=== PATIENT | female | born 1930 | race Caucasian/White ===

== ENCOUNTER → 2017-03-07 | Outpatient (CLI) | payer OTHER, BC | LOC: BMCIMAGING 10:32 | PROVIDERS: ATTEND Podiatrist Foot & Ankle Surgery | DX: M20.11 Hallux valgus (acquired), right foot (principal); M85.871 Other specified disorders of bone density and structure, right ankle and foot; M85.89 Other specified disorders of bone density and structure, multiple sites ==

== ENCOUNTER → 2017-06-21 | Day surgery (SDC) | payer OTHER, BC ==
[~2017-06-21] MED LIST: BUPIVACAINE 0.5% 30 ML SDV ONE; DEXAMETHASONE 4 MG/ML VIAL ONE; HYDROCODONE/APAP 5/325 TAB PO PRN; HYDROmorphONE/DILAUDID 1 MG/ML SYR IVP PRN; LIDOCAINE 1% 2 ML INJ ID PRN; LIDOCAINE 1% 2 ML INJ ONE; LIDOCAINE 2% 5 ML SDV ONE; LR 1,000 ML IV ONE; LR 1,000 ML IV SCH; LR 500 ML IV PRN; MIDAZOLAM 2 MG/2 ML VIAL IVP ONE; MIDAZOLAM 2 MG/2 ML VIAL ONE; NALOXONE HCL 0.4 MG/ML INJ IVP PRN; ONDANSETRON 4 MG/2 ML VIAL IVP PRN; ONDANSETRON 4 MG/2 ML VIAL ONE; PROPOFOL/EMULSION 500 MG/50 ML BOTTLE IV ONE; ceFAZolin 1 GM/5 ML SYR ONE; ceFAZolin 2 GM/DEXTROSE 100 ML IV ONE; fentaNYL 100 MCG/2 ML INJ IVP PRN; fentaNYL 100 MCG/2 ML INJ ONE
--- NOTE | 2017-06-21 10:08 | PDANEPAE ---
ANE History of Present Illness foot ANE Past Medical History - Cardiovascular History Hx Hypertension: Yes Hx Arrhythmias: Yes Hx Chest Pain: No Hx Coronary Artery / Peripheral Vascular Disease: Yes Hx CHF / Valvular Disease: No Hx Palpitations: No Cardiovascular History Comment: Pacemaker. Mitral Valve repair. SSS - Pulmonary History Hx COPD: No Hx Asthma/Reactive Airway Disease: No Hx Recent Upper Respiratory Infection: Yes Hx Oxygen in Use at Home: Yes O2 in Use at Home (L/minute): 2 Hx Sleep Apnea: No Sleep Apnea Screening Result - Last Documented: Negative Pulmonary History Comment: O2 at night - Neurologic History Hx Cerebrovascular Accident: No Hx Seizures: No Hx Dementia: No - Endocrine History Hx Diabetes: No - Renal History Hx Renal Disorders: No - Liver History Hx Hepatic Disorders: No - Neurological & Psychiatric Hx Hx Neurological and Psychiatric Disorders: No - Cancer History Hx Cancer: No - Congenital Disorder History Hx Congenital Disorders: No - GI History Hx Gastrointestinal Disorders: No - Chronic Pain History Chronic Pain: No - Surgical History Prior Surgeries: Tonsillectomy. Pacemaker x2 ANE Review of Systems - Exercise capacity METS (RN): 3 METS - Pacemaker Pacemaker Type: Permanent Pacer/Defib Pacemaker Fryline Attendant: Biotronik Pacemaker Model: Yariel MILES ANE Patient History - Allergies Allergies/Adverse Reactions: No Known Allergies Allergy (Unverified 07/23/12 23:49) - Home Medications Home Medications: Aspirin [Aspirin 81mg (OTC)] 81 mg PO DAILY 07/24/12 [Last Taken 01/15/13 08:00] Multivitamins [Multivitamin (OTC)] 1 each PO DAILY 07/24/12 [Last Taken 08:00] Primidone [Primidone 250mg (RX)] 250 mg PO DAILY@12 07/24/12 [Last Taken 12:00] Primidone [Primidone 250mg (RX)] 500 mg PO DAILY 07/24/12 [Last Taken 01/15/13 08:00] Triamterene/Hctz 37.5/25 [Dyazide 37.5/25 (RX)] 1 each PO DAILY 07/24/12 [Last Taken 01/15/13 08:00] Glucosa Wilson 2Kcl/Chondroitin Wilson [Glucosamine & Chondroitin Cap] 1 each PO BIDMEAL 01/15/13 [Last Taken 01/15/13 08:00] LORazepam [Ativan 0.5 mg (RX)] 0.5 mg PO BID 01/15/13 [Last Taken 01/15/13 08:00 ] Pharmacist Completed 01-15-13 01/15/13 [Last Taken Unknown] - NPO status NPO Since - Liquids (Date): 06/20/17 NPO Since - Liquids (Time): 19:00 NPO Since - Solids (Date): 06/20/17 NPO Since - Solids (Time): 19:00 - Anes Hx Anes Hx: no prior problems - Smoking Hx Smoking Status: Never smoked - Family Anes Hx Family Hx Anesthesia Complications: none ANE Labs/Vital Signs - Vital Signs Blood Pressure: 146/74 Heart Rate: 84 Respiratory Rate: 18 O2 Sat (%): 95 Height: 165.1 cm Weight: 59.874 kg ANE Physical Exam - Airway Mallampati Score: Class 2 Mouth exam: normal dental/mouth exam - Pulmonary Pulmonary: no respiratory distress - Cardiovascular Cardiovascular: regular rate and rhythym - ASA Status ASA Status: II
--- NOTE | 2017-06-21 10:12 | PDGENHP ---
History and Physical - Chief Complaint Right foot bunion - History of Present Illness 87 year old female with painful bunion deformity which has failed conservative treatments. She continues to develop a wound over the medial 1st metatarsal head. Scheduled for surgery. Cleared by cardiology. History Information - Allergies/Home Medication List Allergies/Adverse Reactions: No Known Allergies Allergy (Unverified 07/23/12 23:49) Home Medications: Aspirin [Aspirin 81mg (OTC)] 81 mg PO DAILY 07/24/12 [Last Taken 01/15/13 08:00] Multivitamins [Multivitamin (OTC)] 1 each PO DAILY 07/24/12 [Last Taken 08:00] Primidone [Primidone 250mg (RX)] 250 mg PO DAILY@12 07/24/12 [Last Taken 12:00] Primidone [Primidone 250mg (RX)] 500 mg PO DAILY 07/24/12 [Last Taken 01/15/13 08:00] Triamterene/Hctz 37.5/25 [Dyazide 37.5/25 (RX)] 1 each PO DAILY 07/24/12 [Last Taken 01/15/13 08:00] Glucosa Wilson 2Kcl/Chondroitin Wilson [Glucosamine & Chondroitin Cap] 1 each PO BIDMEAL 01/15/13 [Last Taken 01/15/13 08:00] LORazepam [Ativan 0.5 mg (RX)] 0.5 mg PO BID 01/15/13 [Last Taken 01/15/13 08:00 ] Pharmacist Completed 01-15-13 01/15/13 [Last Taken Unknown] I have personally reviewed and updated: medical history - Past Medical History atrial fibrillation, hypertension (pacemaker) - Social History Smoking Status: Never smoked Review of Systems Constitutional: Reports: no symptoms EENMT: Reports: no symptoms Cardiac: Reports: no symptoms, irregular heart rate Respiratory: Reports: no symptoms Gastrointestinal: Reports: no symptoms Muscolosketal: Reports: other (right foot bunion) Skin: Reports: no symptoms Neurological: Reports: no symptoms Physical Exam Temp Pulse Resp BP Pulse Ox 36.6 C 84 18 146/74 H 95 06/21/17 09:41 06/21/17 10:08 06/21/17 10:08 06/21/17 10:08 07/28/17 10:08 Constitutional: no apparent distress Cardiovascular: regular rate and rhythym Peripheral Pulses: 2+: dorsalis-pedis (R) Respiratory: no respiratory distress Skin: warm, normal color Musculoskeletal: full muscle strength, other (Right foot bunion and hammertoes) Neurologic: sensation intact bilaterally Assessment & Plan Assessment: Right foot bunion and hammertoes Plan: She is scheduled for a right foot Judge bunionectomy and flexor tenotomies to the toes. She will keep the dressing clean, dry, and intact. She will ice and elevate her foot. She will remain in the walking boot with use of the walker for assistance. Follow up in one week.
--- NOTE | 2017-06-21 12:05 | POSTOPPROG ---
Post Op Note Date of Operation: 06/21/17 Surgeon: Mirta Owens Instrument Repairer Helper: None Anesthesiologist: Dr. Stock Anesthesia: IV Sedation Pre-op Diagnosis: Right foot bunion and hammertoes Post-op Diagnosis: Right foot bunion and hammertoes Indication: Chronic wound medial eminence of bunion. Patient unable to wear shoes. Procedure: Right foot Judge bunionectomy, flexor tenotomies of toes 2-5. Findings: Soft bone consistent with osteoporosis. Inf/Abcess present in the surg proc area at time of surgery?: No Depth: Deep Incisional (Fascial) EBL: Pneumatic ankle tourniquet @225 mm Hg 58 minutes Total fluids administered: 15 cc 0.5% Marcaine plain and 5 cc 2% Lidocaine plain. Complications: None
[2017-06-21 12:22] VITALS: PULSE 84; RESP 16
[2017-06-21 12:57] VITALS: TEMP 97.5
[2017-06-21 14:11] VITALS: BP 140/76; O2SAT 94
--- NOTE | 2017-06-21 15:29 | GOP ---
[f rep st] OPERATIVE REPORT DATE OF OPERATION: 06/21/2017 SURGEON: Mirta Owens DPM ANESTHESIA: Local with monitored anesthesia care. ANESTHESIOLOGIST: Dr. Stock. PREOPERATIVE DIAGNOSIS: Right foot bunion and hammertoes, 2 through 5. POSTOPERATIVE DIAGNOSIS: Right foot bunion and hammertoes, 2 through 5. PROCEDURE PERFORMED: 1. Right foot Judge bunionectomy. 2. Right foot flexor tenotomies, toes 2 through 5. FINDINGS: ESTIMATED BLOOD LOSS: Minimal. DESCRIPTION OF PROCEDURE: Under mild sedation, the patient was brought into the operating room, harmony obdulio on the operating table in supine position. Following IV sedation, local anesthesia was obtained about the right foot using 15 cc of 0.5% Marcaine plain and 5 cc of 2% lidocaine plain. The foot w as then scrubbed, prepped, and draped in the usual aseptic manner. A sterile pneumatic ankle tourni quet was placed about her right ankle. The foot was exsanguinated and tourniquet inflated to 225 mm Hg. Attention was then directed to the 1st metatarsophalangeal joint, where an incision was made me dial and parallel to the tendon of the extensor hallucis longus. The incision was deepened through subcutaneous tissue, with care taken to identify and retract all vital neural and vascular structure s. All bleeders were cauterized as necessary. An inverted L-type capsulotomy was then performed ov er the 1st metatarsophalangeal joint. The periosteum and capsule were reflected medially and latera lly to expose the 1st metatarsal head as the operative site. The medial eminence was resected utili zing an oscillating bone saw. The bone was found to be extremely soft and cystic in the 1st metatar ramos head. The incision was then lengthened over the base of the proximal phalanx. Approximately 1 cm of the base of the proximal phalanx was removed for the Judge bunionectomy. This was done using the oscillating bone saw, and sharp dissection used to remove the base of the proximal phalanx. Th e lateral contracture on the hallux was noted to be reduced. The wound was irrigated with copious s terile saline-Ancef irrigation. All rough edges were smoothed with a rongeur, as the bur was too ag gressive for the soft bone. The wound was again irrigated. The redundant medial capsule was resect ed as necessary. Periosteum and capsule were repaired with 2-0 and 3-0 Vicryl. The subcuticular la wilbur was repaired with 4-0 Monocryl, and the skin with 4-0 Prolene in horizontal suture technique. Attention was then directed to all of the toes, where a flexor tenotomy was then performed percutane ously using a 15 blade. This was done to the toes 2, 3, 4, and 5. The incisions were irrigated and closed with 4-0 Prolene. Mastisol, Steri-Strips, Xeroform, 4 x 4 gauze, Fabricio, Chevy wrap were appli ed. Tourniquet was deflated at 58 minutes. A prompt hyperemic response was noted to all digits of the right foot. The patient was then transferred to the recovery room with vital signs stable and vascular status in tact. Following a period of postoperative monitoring, the patient will be discharged home. Advised to ice and elevate her foot. She is advised to keep the dressing clean, dry, and intact. She will follow up with me in the next week for wound check and dressing change. HEMOSTASIS: Pneumatic ankle tourniquet at 225 mmHg for 58 minutes. INJECTABLES: 15 cc of 0.5% Marcaine plain and 5 cc of 2% lidocaine plain. /[id number]/MODL
== END | disposition home or self-care (01) ==
LOC: F3N 08:33 → FSGY 08:33 → UNDOADMOB 08:33 → EDSTATUS 10:00 → UNDODISOB 13:50
PROVIDERS: ATTEND Podiatrist Foot & Ankle Surgery
PROC: 0LNV0ZZ Release Right Foot Tendon, Open Approach (ICD-10-PCS; principal; 2017-06-21 10:00)
PROC: 0SSM0ZZ Reposition Right Metatarsal-Phalangeal Joint, Open Approach (ICD-10-PCS; 2017-06-21 10:00)
DX: M20.11 Hallux valgus (acquired), right foot (principal); M20.41 Other hammer toe(s) (acquired), right foot; L89.899 Pressure ulcer of other site, unspecified stage; M85.88 Other specified disorders of bone density and structure, other site; I48.91 Unspecified atrial fibrillation; I10 Essential (primary) hypertension; Z95.0 Presence of cardiac pacemaker
CPT/HCPCS: J0690; J1100; J2250; J2405; J2704; J3010

== ENCOUNTER → 2017-07-10 | Outpatient (CLI) | payer OTHER, BC | LOC: BMCIMAGING 13:46 | PROVIDERS: ATTEND Podiatrist Foot & Ankle Surgery | DX: R22.41 Localized swelling, mass and lump, right lower limb (principal) ==

== ENCOUNTER → 2017-07-23 | Outpatient (CLI) | payer OTHER, BC | LOC: BMCIMAGING 14:15 | PROVIDERS: ATTEND Podiatrist Foot & Ankle Surgery | DX: Z47.89 Encounter for other orthopedic aftercare (principal) ==

== ENCOUNTER 2017-08-20 02:36 | Inpatient (IN) | payer OTHER, BC ==
[2017-08-20] MEDS ORDERED: ONDANSETRON 4 MG/2 ML VIAL ONE (02:52)
[2017-08-20] MEDS ORDERED: NS 1,000 ML IV ONE ×2 (02:54→04:55)
[2017-08-20] MEDS ORDERED: ONDANSETRON 4 MG/2 ML VIAL IVP ONE (02:54)
--- NOTE | 2017-08-20 03:16 | EDPHY ---
H & P Stated Complaint: no bm x 5 days vomiting Time Seen by Provider: 08/20/17 03:03 HPI/ROS: Chief Complaint: Constipation, vomiting HPI: 87-year-old woman presenting from assisted living stating that she has not had a bowel movement for 6 days. She states she believes she has vomiting fecal material. Does not have a history of similar symptoms in the past. She denies any abdominal pain. No abdominal surgeries in the past. No urinary symptoms. No fevers or chills. No chest pain or shortness of breath. ROS: 10 point Review of Systems is negative except as noted in the HPI. PMH: Coronary artery disease, tremor, hypertension, pacemaker placement Social History: No smoking, no alcohol, no recreational drug use Family History: non-contributory Physical Exam: Gen: Awake, Alert, No Distress HEENT: Nose: no rhinorrhea Eyes: PERRLA, EOMI Mouth: Moist mucosa Neck: Supple, no JVD Chest: nontender, lungs clear to auscultation Heart: S1, S2 normal, no murmur Abd: Soft, hypoactive bowel sounds, moderately distended, moderate lower abdominal tenderness palpation Back: no CVA tenderness, no midline tenderness Ext: no edema, non-tender Skin: no rash Neuro: CN II-XII intact, Sensation grossly intact, Strength 5/5 in bilateral upper and lower extremities - Personal History Current Tetanus/Diphtheria Vaccine: Yes Current Tetanus Diphtheria and Acellular Pertussis (TDAP): Yes - Medical/Surgical History Hx Asthma: No Hx Chronic Respiratory Disease: No Hx Diabetes: No Hx Cardiac Disease: No Hx Renal Disease: No Hx Cirrhosis: No Hx Alcoholism: No Hx HIV/AIDS: No Hx Splenectomy or Spleen Trauma: No - Social History Smoking Status: Never smoked Constitutional: Initial Vital Signs Temperature (C) 36.4 C 08/20/17 02:45 Heart Rate 105 H 08/20/17 02:45 Respiratory Rate 18 08/20/17 02:45 Blood Pressure 139/83 H 08/20/17 02:45 O2 Sat (%) 84 L 08/20/17 02:45 O2 Delivery Mode Room Air O2 (L/minute) 3 Allergies/Adverse Reactions: No Known Allergies Allergy (Unverified 07/23/12 23:49) Home Medications: Medication Instructions Recorded Primidone [Primidone 250mg (RX)] 250 mg PO TID 07/24/12 Acetaminophen [Tylenol 325mg (*)] 650 mg Q6HRS PRN 06/21/17 Apixaban [Eliquis] 2.5 mg BID 06/21/17 Aspercreme PRN 06/21/17 Colace 100 MG (*) 100 mg BID PRN 06/21/17 Detrol LA 2MG (*) 2 mg BID 06/21/17 Digoxin [Digitek] 125 mcg DAILY 06/21/17 Diltiazem HCl [Diltiazem ER] 120 mg DAILY 06/21/17 Furosemide [Lasix 20 MG (*)] 20 mg BID 06/21/17 Hydrocortisone 1% cream (*) BID 06/21/17 Metoprolol Tartrate 100 mg BID 06/21/17 Mucinex Fast-Max Cold-Flu Liq PRN 06/21/17 Omeprazole 20 mg DAILY 06/21/17 Potassium Chloride DAILY 06/21/17 Potassium Chloride [Klor-Con 10] BID 06/21/17 Primidone [Primidone 250mg (*)] TID 06/21/17 Spironolactone [Aldactone 25 MG 12.5 mg DAILY 06/21/17 (*)] Donepezil HCl 08/20/17 Myrbetriq 08/20/17 Omeprazole 08/20/17 oxyCODONE HCL [Oxycodone HCl] 5 mg PO 08/20/17 Medical Decision Making - Diagnostics Imaging Results: CT scan of the abdomen pelvis shows a high-grade partial distal small-bowel obstruction low with central pelvis with narrowing. There is fecalization within the ileum pre in the rectosigmoid region is decompressed. There is some fluid distension stomach and some diffuse wall thickening with concurrent gastroenteritis. There is no free air. Interpreted by Dr. Naqvi. Imaging: Discussed imaging studies w/ manager call center Radiologist ED Course/Re-evaluation: 87-year-old woman with a high-grade distal partial small-bowel obstruction. Does not have a history of surgeries. She has only vomited a couple times. She is not in any significant distress at this time. I have discussed with Dr. barney joshi ED, hospitalist. She will admit to the service for further care. Patient will be admitted for medical management. No NG at this time. - Data Points Laboratory Results: Laboratory Results 08/20/17 02:45 08/20/17 02:45 08/20/17 08/20/17 08/20/17 04:30 02:45 02:45 WBC 12.45 10^3/uL H 10^3/uL (3.80-9.50) RBC 4.09 10^6/uL L 10^6/uL (4.18-5.33) Hgb 14.0 g/dL g/dL (12.6-16.3) Hct 41.1 % % (38.0-47.0) MCV 100.5 fL H fL (81.5-99.8) MCH 34.2 pg H pg (27.9-34.1) MCHC 34.1 g/dL g/dL (32.4-36.7) RDW 13.2 % % (11.5-15.2) Plt Count 170 10^3/uL 10^3/uL (150-400) MPV 12.3 fL H fL (8.7-11.7) Neut % (Auto) 89.6 % H % (39.3-74.2) Lymph % (Auto) 5.7 % L % (15.0-45.0) [place] % (Auto) 4.1 % L % (4.5-13.0) Eos % (Auto) 0.0 % L % (0.6-7.6) Baso % (Auto) 0.2 % L % (0.3-1.7) Nucleat RBC Rel Count 0.0 % % (0.0-0.2) Absolute Neuts (auto) 11.16 10^3/uL H 10^3/uL (1.70-6.50) Absolute Lymphs (auto) 0.71 10^3/uL L 10^3/uL (1.00-3.00) Absolute Monos (auto) 0.51 10^3/uL 10^3/uL (0.30-0.80) Absolute Eos (auto) 0.00 10^3/uL L 10^3/uL (0.03-0.40) Absolute Basos (auto) 0.02 10^3/uL 10^3/uL (0.02-0.10) Absolute Nucleated RBC 0.00 10^3/uL 10^3/uL (0-0.01) Immature Gran % 0.4 % % (0.0-1.1) Immature Gran # 0.05 10^3/uL 10^3/uL (0.00-0.10) Sodium 137 mEq/L mEq/L (134-144) Potassium 4.3 mEq/L mEq/L (3.5-5.2) Chloride 94 mEq/L L mEq/L (97-110) Carbon Dioxide 28 mEq/l mEq/l (22-31) Anion Gap 15 mEq/L mEq/L (8-16) BUN 21 mg/dL mg/dL (7-23) Creatinine 1.1 mg/dL H mg/dL (0.6-1.0) Estimated GFR 47 Glucose 165 mg/dL H mg/dL (70-100) Calcium 10.2 mg/dL mg/dL (8.5-10.4) Urine Color YELLOW Urine Appearance CLEAR Urine pH 5.0 (5.0-7.5) Ur Specific [place] > 1.035 H (1.002-1.030) Urine Protein NEGATIVE (NEGATIVE) Urine Ketones TRACE H (NEGATIVE) Urine Blood NEGATIVE (NEGATIVE) Urine Nitrate NEGATIVE (NEGATIVE) Urine Bilirubin NEGATIVE (NEGATIVE) Urine Urobilinogen NEGATIVE EU EU (0.2-1.0) Ur Leukocyte Esterase 2+ H (NEGATIVE) Urine RBC 1-3 /hpf /hpf (0-3) Urine WBC 1-3 /hpf /hpf (0-3) Ur Epithelial Cells TRACE /lpf /lpf (NONE-1+) Urine Bacteria TRACE /hpf H /hpf (NONE SEEN) Urine Mucus TRACE /lpf /lpf (NONE-1+) Urine Glucose NEGATIVE (NEGATIVE) Medications Given: Discontinued Medications Sodium Chloride (Ns) 1,000 mls @ 0 mls/hr IV ONCE ONE PRN Reason: Wide Open Stop: 08/20/17 02:55 Last Admin: 08/20/17 02:56 Dose: 1,000 mls Ondansetron HCl (Zofran) 4 mg IVP EDNOW ONE Stop: 08/20/17 02:55 Last Admin: 08/20/17 02:56 Dose: 4 mg Departure - Departure
[2017-08-20] MEDS ORDERED: IOPAMIDOL (ISOVUE-300) 100 ML BTL ONE (03:20)
[2017-08-20 03:21] LABS: % IMMATURE GRANULYOCYTES 0.4 % (0.0-1.1); ABSOLUTE IMMATURE GRANULOCYTES 0.05 10^3/uL (0.00-0.10); ADD DIFF? NO; ADD MORPH? NO; ADD SCAN? NO; ATYPICAL LYMPHOCYTE FLAG 0 (0-99); FRAGMENT RBC FLAG 0 (0-99); HEMATOCRIT 41.1 % (38.0-47.0); LEFT SHIFT FLG 0 (0-99); LIPEMIA HEMOLYSIS FLAG 90 (0-99); MEAN CELL HEMOGLOBIN 34.2 pg (27.9-34.1); MEAN CELL HEMOGLOBIN CONCENTR. 34.1 g/dL (32.4-36.7); MEAN CELL VOLUME 100.5 fL (81.5-99.8); MEAN PLATELET VOLUME 12.3 fL (8.7-11.7); PLATELET CLUMPS FLAG 0 (0-99); PLATELET COUNT 170 10^3/uL (150-400); RED BLOOD CELL COUNT 4.09 10^6/uL (4.18-5.33); RED CELL DISTRIBUTION WIDTH 13.2 % (11.5-15.2)
[2017-08-20 03:28] LABS: ANION GAP 15 mEq/L (8-16); CALCIUM 10.2 mg/dL (8.5-10.4); CARBON DIOXIDE 28 mEq/l (22-31); CHLORIDE 94 mEq/L (97-110); CREATININE 1.1 mg/dL (0.6-1.0); GLOMERULAR FILTRATION RATE 47; GLUCOSE 165 mg/dL (70-100); POTASSIUM 4.3 mEq/L (3.5-5.2); SODIUM 137 mEq/L (134-144)
[2017-08-20 04:39] LABS: COLOR YELLOW; LEUKOCYTE ESTERASE,URINE 2+ (NEGATIVE); NITRITE,URINE NEGATIVE (NEGATIVE)
[2017-08-20 04:51] LABS: BACTERIA TRACE /hpf (NONE SEEN); MUCUS TRACE /lpf (NONE-1+)
[2017-08-20] MEDS ORDERED: ACETAMINOPHEN 325 MG TAB PO PRN (04:55)
[2017-08-20] MEDS ORDERED: HYDROmorphONE/DILAUDID 1 MG/ML INJ IVP PRN (04:55)
[2017-08-20] MEDS ORDERED: ONDANSETRON DISINTEGRATING 4 MG TAB PO PRN (04:55)
[2017-08-20] MEDS ORDERED: ONDANSETRON 4 MG/2 ML VIAL IVP PRN (04:55)
--- NOTE | 2017-08-20 05:37 | GHP ---
[f rep st] HISTORY AND PHYSICAL DATE OF ADMISSION: 08/20/2017 CHIEF COMPLAINT: Abdominal pain, nausea, and vomiting. HISTORY OF PRESENT ILLNESS: An 87-year-old female with cardiac history including valve replacement, atrial fibrillation with a pacemaker, who presents with complaints of 5 days of progressing abdominal discomfort, nausea and vomiting that she describes as postprandial. The patient reports that early this morning she believes she was passing vomit that consisted of stool. The patient reports she has had little to no bowel movements in the past 5 days, as well, which is atypical for her. Normally, she can pass normal stool nearly daily. The patient denies any blood in her vomitus. Does endorse a bdominal discomfort. Reports that she has been vomiting up 2 of her 3 meals a day, but keeping most liquids down without complication. She denies any chest pain, shortness of breath, palpitations, hea dache, vision changes. She denies subjective fevers or chills. Denies any myalgias, arthralgias, or preceding nausea, vomiting, and abdominal pain. PAST MEDICAL HISTORY: 1. Valve replacement. 2. Atrial fibrillation with pacemaker. 3. Hypertension. 4. Dementia. 5. Familial tremor. 6. Sick sinus syndrome with pacemaker. 7. History of a sinus arrest. SOCIAL HISTORY: Patient lives at [facility] in assisted living. Walks with a walker. Denies tobacco o r illicit drugs. Drinks alcohol occasionally. FAMILY HISTORY: Negative for atrial fibrillation. ADVANCED DIRECTIVES: The patient is do not resuscitate. Her [id number] would be her medical dec ision maker. REVIEW OF SYSTEMS: A 10-point review of systems is negative with the exception of that reported in t he HPI. PHYSICAL EXAMINATION: VITAL SIGNS: Blood pressure 139/83, heart rate 105, respiratory rate 18, 84% on room air, 36.4. GENERAL: This is a pleasant elderly female, lying flat in bed. HEENT: Notable for dry mucous membranes. Eye exam is negative for any icterus. CARDIAC: The patient is irregularl y irregular and tachycardic. PULMONARY: Clear to auscultation bilaterally. GASTROINTESTINAL: Dimi nished bowel sounds. Abdomen is soft, mildly tender to palpation in bilateral lower quadrants. No r ebound or guarding. MUSCULOSKELETAL: Negative for any lower extremity edema. SKIN: Negative for a ny rashes. NEUROLOGIC: She is alert and oriented x3. Clearly has some memory difficulties. PSYCHI ATRIC: She is pleasant and cooperative on interview and examination. DATA: CT of the abdomen, which I personally reviewed and interpreted, shows a high-grade small bowel obstruction with what Radiology identifies as a transition point. LABORATORY: White count 12.4, hematocrit 41.1, platelets of 170. Creatinine of 1.1. Sodium 137, po tassium of 4.3. ASSESSMENT AND PLAN: This is an 87-year-old female, presenting with abdominal pain nausea, vomiting. 1. Acute small bowel obstruction. The patient is not able to clearly convey a preceding gastroenter itis or clear intraabdominal surgical history. Images confirm high-grade small bowel obstruction. W ill make the patient n.p.o., initiate intravenous fluid hydration, intravenous pain medications, as w ell as intravenous antiemetics. Will consult Surgery this morning so they can follow along. The pat ient is not having active nausea and vomiting. Will wait. I am dropping in NG tube at this time unt nh Surgery has evaluated, and provide their recommendations. 2. Mitral valve replacement. Patient is on Eliquis. I am going to hold this medication for now, un til we discuss with Surgery. Believe the patient has a porcine valve so it is safe to keep unanticoa gulated if needed for surgical options. 3. Atrial fibrillation. Patient is in atrial fibrillation at this time. Intermittently being paced . Again, will hold her Eliquis until discussed further with Surgery. Can certainly bridge with Love nox. We will continue any rate control medications that she is on once reconciled. I have written f or an additional saline bolus and continuous fluids to reverse any underlying dehydration, driving ta chycardia. 4. Acute kidney injury. Suspect this is likely volume related. Will fluid resuscitate and recheck her renal function. 5. Prophylaxis as above, placing sequential compression devices. Will discuss longer-acting blood t hinners with Surgery. DIET: N.p.o. with IV fluids. DISPOSITION: I expect greater than 2 midnights, as the patient is presenting with a high-grade bowel obstruction at the age of 87, requiring initial medical management and surgical consultation. I hav e discussed the case with the emergency room physician. [facility] for care. /[id number]/MODL
--- NOTE | 2017-08-20 07:46 | SOAPPROG ---
SOAP Progress Note Assessment/Plan: Assessment: 87 female with feculent emesis and probable sbo/ no prior abd surgery Plan:obs 08/20/17 07:45 Objective: Vital Signs Temp Pulse Resp BP Pulse Ox 36.5 C 105 H 16 130/75 H 90 L 08/20/17 05:42 08/20/17 05:42 08/20/17 05:42 08/20/17 05:42 08/20/17 05:42 08/19/17 08/20/17 08/21/17 05:59 05:59 05:59 Intake Total 1000 Balance 1000 ICD10 Worksheet Patient Problems: Problems Problem Status Onset Muscle weakness Active
--- NOTE | 2017-08-20 08:53 | GCON ---
[f rep st] CONSULTATION GENERAL SURGERY CONSULTATION DATE OF CONSULTATION: 08/20/2017 CHIEF COMPLAINT: Abdominal pain, nausea, and vomiting. REASON FOR CONSULT: We have been asked to consult by the medicine service for diagnosis of small bow el obstruction. HISTORY OF PRESENT ILLNESS: The patient is an 87-year-old female who reportedly complains of 5 days of progressing postprandial abdominal pain, nausea, and vomiting without a bowel movement for about t he past 5 days. She reports a normal history of constipation. Please note, this report is almost en tirely from chart review as she is unable to give me history this morning. She currently thinks she might be [place] the theater. She does not recall having abdominal pain when I talked to her this morning . Since being in the hospital, she has had a CT scan of the abdomen and pelvis, which shows a likely hi gh-grade partial distal small bowel obstruction with a point of transition in the lower pelvis. Ther e is also some fluid and fecalization of the terminal ileum and ascending colon with some decompressi on of the more distal portions of the colon. Please see the report for full details. When I asked h er if she has had any prior abdominal surgical history, she says she thinks so. Upon exam, I cannot appreciate any abdominal scars. PAST MEDICAL HISTORY: Is again from chart review and includes valve replacement, atrial fibrillation with pacemaker, hypertension, dementia, familial tremor, sick sinus syndrome with pacemaker and hist ory of sinus arrest. PAST SURGICAL HISTORY: Patient thinks she may have abdominal surgery but is not a good historian. I do see a scar on her chest indicative of open heart surgery and she does have a history of valve rep lacement per chart review. There is a pacemaker in place. MEDICATIONS: At home include omeprazole, Myrbetriq, donepezil, spironolactone, primidone, potassium chloride, Mucinex, metoprolol, hydrocortisone cream, Lasix, diltiazem, digoxin, Detrol LA, Colace, As percreme, Eliquis, acetaminophen. All these to be confirmed by Pharmacy. ALLERGIES: No known drug allergies. SOCIAL HISTORY: The patient resides at a halfway. At [facility]. She uses a walk er. She denies tobacco or illicit drug use and she does drink alcohol on occasion. FAMILY HISTORY: Noncontributory. Not obtained. REVIEW OF SYSTEMS: Negative aside from that reported in the HPI. PHYSICAL EXAMINATION: VITAL SIGNS: Temperature 36.5, blood pressure 130/75, heart rate 105, oxygena tion 90% on room air. Respiratory rate 16. GENERAL: A pleasant 87-year-old female, sleeping comfor tably, who easily awakens. [place] is [place] the theater. Does recall being in the emergency departm ent. Has recollection of the reason why she came into the hospital. HEENT: Normocephalic, atraumat ic. Mucous membranes moist. Sclerae anicteric. CHEST: Clear to auscultation bilaterally. CARDIAC : Regular rate and rhythm. ABDOMEN: Softly distended without rebound or guarding upon deep palpati on. Hypoactive bowel sounds. GENITALIA: Deferred. EXTREMITIES: Warm and dry. IMPRESSION: This is an 87-year-old female with extensive cardiac history and dementia with a likely small bowel obstruction, etiology uncertain. Possible history of abdominal surgery. PLAN: I agree with current plan of bowel rest, gentle IV hydration and supportive care with antiemet ics and pain medicines as needed. She does not seem to need nasogastric compression right now as she appears comfortable. We will get an abdominal x-ray either later today or early tomorrow morning. I will continue to follow the patient with you. I also discussed this with Dr. Reese, who will see t he patient today. /[id number]/MODL
--- NOTE | 2017-08-20 09:45 | ASMTCMCOM ---
CM Note CM Note Notes: Chart reviewed, pt is a 87 y/o female admitted w/ abdominal pain, nausea and vomitting. Pt is a DNR and her brother in law is MDPOA. It is suspected that pt has a small bowel obstruction and surgery has been ordered to consult. No therapies ordered at this time. Anticipates that pt will d/c independent when medically stable. CM available for changes. Date Signed: 08/20/2017 09:44 AM Electronically Signed By:HEIDY Orellana
--- NOTE | 2017-08-20 10:31 | HOSPPROG ---
Hospitalist Progress Note Assessment/Plan: Patient is an 87-year-old female with a cardiac history who presented the emergency room with abdominal pain nausea and vomiting. She was admitted earlier today. I reviewed her care with Dr. Reese. * abdominal pain with associated nausea and vomiting concern for an acute small-bowel obstruction, CT shows a high grade small bowel obstruction Will get a small-bowel follow-through this morning to further evaluate As far as I know she has no abdominal surgeries * mitral valve replacement Will hold Eliquis for now * atrial fibrillation hold all meds for now x for beta sebas concerned she will go into RVR * acute kidney injury creat is 1.1 *Leukocytosis most likely and acute reaction from N & v *Mild dementia Plan: get a small bowel follow through to r/o any obstruction Subjective: Pat has no complaints. No abdominal pain. Objective: Vital Signs Temp Pulse Resp BP Pulse Ox 36.5 C 99 14 133/106 H 97 08/20/17 08:00 08/20/17 08:00 08/20/17 08:00 08/20/17 08:00 08/20/17 08:00 08/19/17 08/20/17 08/21/17 05:59 05:59 05:59 Intake Total 1000 Balance 1000 - Physical Exam Constitutional: no apparent distress, appears nourished, not in pain Eyes: PERRL Ears, Nose, Mouth, Throat: hearing normal Cardiovascular: irregularly irregular Respiratory: no respiratory distress Gastrointestinal: soft, non-tender abdomen, No normoactive bowel sounds ( hypoactive in all 4 quadrants) Skin: warm Neurologic: AAOx3 Psychiatric: interacting appropriately, poor memory ICD10 Worksheet Patient Problems: Problems Problem Status Onset Muscle weakness Active
[2017-08-20] MEDS: METOPROLOL TARTRATE 100 MG TAB PO SCH ×2 (11:34→20:13)
--- NOTE | 2017-08-20 18:19 | SOAPPROG ---
SOAP Progress Note Assessment/Plan: Assessment/Plan: 87 Y F dementia, cardiac hx, SBO. Uncertain if abd surgical hx- -no definite evidence of it on CT. Also seen by Dr. Reese. SBFT not progressing. May need surgery. Possibly tomorrow. Plan for NGT tonight if N/V. 08/20/17 18:18 Objective: Vital Signs Temp Pulse Resp BP Pulse Ox 36.8 C 98 18 139/79 H 95 08/20/17 12:00 08/20/17 12:00 08/20/17 12:00 08/20/17 12:00 08/20/17 12:00 08/19/17 08/20/17 08/21/17 05:59 05:59 05:59 Intake Total 1000 Output Total 200 Balance 1000 -200 ICD10 Worksheet Patient Problems: Problems Problem Status Onset Muscle weakness Active
[2017-08-20] MEDS: NS 1,000 ML IV SCH (20:13)
[2017-08-21] MEDS: NS 1,000 ML IV SCH ×2 (04:15→12:00)
[2017-08-21 05:35] LABS: % IMMATURE GRANULYOCYTES 0.4 % (0.0-1.1); ABSOLUTE IMMATURE GRANULOCYTES 0.04 10^3/uL (0.00-0.10); ADD DIFF? NO; ADD MORPH? NO; ADD SCAN? NO; ATYPICAL LYMPHOCYTE FLAG 0 (0-99); FRAGMENT RBC FLAG 0 (0-99); HEMATOCRIT 38.9 % (38.0-47.0); HEMOGLOBIN 12.8 g/dL (12.6-16.3); LEFT SHIFT FLG 0 (0-99); LIPEMIA HEMOLYSIS FLAG 80 (0-99); MEAN CELL HEMOGLOBIN 33.7 pg (27.9-34.1); MEAN CELL HEMOGLOBIN CONCENTR. 32.9 g/dL (32.4-36.7); MEAN CELL VOLUME 102.4 fL (81.5-99.8); PLATELET CLUMPS FLAG 0 (0-99); PLATELET COUNT 154 10^3/uL (150-400); RED CELL DISTRIBUTION WIDTH 13.5 % (11.5-15.2)
[2017-08-21 05:55] LABS: ALANINE AMINOTRANSFERASE 44 IU/L (9-52); ALBUMIN 3.7 g/dL (3.5-5.0); ALKALINE PHOSPHATASE 124 IU/L (38-126); ANION GAP 12 mEq/L (8-16); ASPARTATE AMINOTRANSFERASE 35 IU/L (14-46); BILIRUBIN,TOTAL 0.7 mg/dL (0.1-1.4); CALCIUM 9.2 mg/dL (8.5-10.4); CARBON DIOXIDE 23 mEq/l (22-31); CHLORIDE 106 mEq/L (97-110); CREATININE 0.8 mg/dL (0.6-1.0); GLOMERULAR FILTRATION RATE > 60; GLUCOSE 137 mg/dL (70-100); SODIUM 141 mEq/L (134-144); TOTAL PROTEIN 6.2 g/dL (6.3-8.2)
[2017-08-21] MEDS: METOPROLOL TARTRATE 100 MG TAB PO SCH (08:52)
[2017-08-21] MEDS ORDERED: cefOXitin SODIUM 2 GM in D5W 100 ML IV ONE (10:13)
--- NOTE | 2017-08-21 10:13 | SOAPPROG ---
DUNG Progress Note Assessment/Plan: Assessment/Plan: 87 Y F dementia, cardiac hx, SBO. Uncertain if abd surgical hx- -no definite evidence of it on CT. Persistent SBO. Plan for OR this afternoon, laparoscopy, possible laparotomy. Consent in chart. Patient consenting but will need to d/w daughter Sarah. S: no BM, no gas, says she is comfortable this am, but does endorse not feeling "normal" the last few days O: gen: alert, pleasant, aware she is hospital pulm: ctab cor: rrr abd: distended, mild diffuse tenderness, rare BS 08/21/17 10:11 Objective: Vital Signs Temp Pulse Resp BP Pulse Ox 36.5 C 112 H 18 119/90 H 91 L 08/21/17 08:00 08/21/17 08:00 08/21/17 08:00 08/21/17 08:00 08/21/17 08:00 Laboratory Results 08/21/17 05:18 08/21/17 05:18 08/20/17 08/21/17 08/22/17 05:59 05:59 05:59 Intake Total 1000 4708 Output Total 550 Balance 1000 4158 ICD10 Worksheet Patient Problems: Problems Problem Status Onset Muscle weakness Active
--- NOTE | 2017-08-21 10:25 | HOSPPROG ---
Hospitalist Progress Note Assessment/Plan: Patient is an 87-year-old female with a cardiac history who presented the emergency room with abdominal pain nausea and vomiting. Reviewed her imaging and labs; *persistent small bowel obstruction OR today for a laparoscopy vs poss laparotomy CT shows a high grade small bowel obstruction * abdominal pain with associated nausea and vomiting none further * mitral valve replacement Will hold Eliquis for now will need this resumed soon * atrial fibrillation hold all meds for now will add her beta sebas for IV use to avoid Afib w RVR * acute kidney injury creat is 0.8/resolved *HTN: added scheduled Metoprolol/ this dose may need to be increased *Leukocytosis resolved *Mild dementia Plan: she will need Eliquis resumed after surgery or treatment with Lovenox, repeat labs in a.m. Subjective: Pat has no complaints/ says her abdomen is tender with palpation but otherwise feels fine. Objective: Vital Signs Temp Pulse Resp BP Pulse Ox 36.5 C 112 H 18 119/90 H 91 L 08/21/17 08:00 08/21/17 08:00 08/21/17 08:00 08/21/17 08:00 08/21/17 08:00 Laboratory Results 08/21/17 05:18 08/21/17 05:18 08/20/17 08/21/17 08/22/17 05:59 05:59 05:59 Intake Total 1000 4708 Output Total 550 Balance 1000 4158 - Physical Exam Constitutional: no apparent distress, appears nourished Eyes: PERRL Ears, Nose, Mouth, Throat: hard of hearing Cardiovascular: regular rate and rhythym, systolic murmur Respiratory: no respiratory distress Gastrointestinal: tenderness, No normoactive bowel sounds (hypoactive/few bowel sounds noted) Skin: warm Musculoskeletal: generalized weakness Neurologic: AAOx3 Psychiatric: interacting appropriately, not anxious ICD10 Worksheet Patient Problems: Problems Problem Status Onset Muscle weakness Active
[2017-08-21] MEDS: METOPROLOL TARTRATE 5 MG/5 ML INJ IVP SCH ×2 (12:00→19:50)
--- NOTE | 2017-08-21 17:27 | PDANEPAE ---
ANE History of Present Illness 87 year old female w/ cardiac history (A. Fib, mitral valve replacement, pacemaker on Eliquis) presents with persistent small bowel obstruction for laparoscopy. ANE Past Medical History - Cardiovascular History Hx Hypertension: Yes Hx Arrhythmias: Yes Hx Chest Pain: No Hx Coronary Artery / Peripheral Vascular Disease: Yes Hx CHF / Valvular Disease: No Hx Palpitations: No Cardiovascular History Comment: Pacemaker. Mitral Valve repair. SSS - Pulmonary History Hx COPD: No Hx Asthma/Reactive Airway Disease: No Hx Recent Upper Respiratory Infection: Yes Hx Oxygen in Use at Home: Yes O2 in Use at Home (L/minute): 2 Hx Sleep Apnea: No Sleep Apnea Screening Result - Last Documented: Negative Pulmonary History Comment: O2 at night - Neurologic History Hx Cerebrovascular Accident: No Hx Seizures: No Hx Dementia: No - Endocrine History Hx Diabetes: No Hypothyroid: No Hyperthyroid: No Obesity: no - Renal History Hx Renal Disorders: No - Liver History Hx Hepatic Disorders: No - Neurological & Psychiatric Hx Hx Neurological and Psychiatric Disorders: No - Cancer History Hx Cancer: No - Congenital Disorder History Hx Congenital Disorders: No - GI History Hx Gastrointestinal Disorders: Yes Gastrointestinal History Comment: small bowel obstruction. - Chronic Pain History Chronic Pain: No - Surgical History Prior Surgeries: Tonsillectomy. Pacemaker x2 ANE Review of Systems Review of systems is: negative Review of Systems: - Exercise capacity Exercise capacity: <4 METS ANE Patient History - Allergies Allergies/Adverse Reactions: No Known Allergies Allergy (Unverified 07/23/12 23:49) - Home Medications Home medications: home medication list seen and reviewed Home Medications: Acetaminophen [Tylenol 325mg (*)] 650 mg PO Q6HRS PRN 08/20/17 [Last Taken Unknown] Acetaminophen [Tylenol ES 500 mg (*)] 1,000 mg PO DAILY18 08/20/17 [Last Taken 08/19/17] Apixaban [Eliquis] 2.5 mg PO BID 08/20/17 [Last Taken 08/19/17 21:00] Benzonatate [Tessalon Pearles (RX)] 100 mg PO TID PRN 08/20/17 [Last Taken Unknown] Cholestyramine/Sucrose [Questran (OTC)] 4 gm PO DAILY PRN 08/20/17 [Last Taken Unknown] Diclofenac Sodium 1% [Voltaren Gel (*)] 1 amy TP DAILY PRN 08/20/17 [Last Taken Unknown] Digoxin [Lanoxin 125 mcg (RX)] 125 mcg PO DAILY 08/20/17 [Last Taken 08/19/17] Diltiazem HCl [Cartia Xt] 120 mg PO DAILY 08/20/17 [Last Taken 08/19/17] Docusate Sodium [Colace 100 MG (*)] 100 mg PO DAILY PRN 08/20/17 [Last Taken Unknown] Donepezil HCl [Aricept 5 MG (*)] 10 mg PO DAILY18 08/20/17 [Last Taken 08/19/17] Furosemide [Lasix 20 MG (*)] 20 mg PO BID 08/20/17 [Last Taken 08/19/17 21:00] Herbals/Supplements -Info Only 1 each PO DAILY 08/20/17 [Last Taken Unknown] Hydrocortisone 1% [Hydrocortisone 1% cream (*)] 1 amy TP DAILY PRN 08/20/17 [ Last Taken Unknown] Lactase [Lactase 3000 Unit (*)] 9,000 unit PO TID 08/20/17 [Last Taken Unknown] Loperamide HCl [Imodium 2 mg (*)] 2 mg PO PRN PRN 08/20/17 [Last Taken Unknown] Magnesium (Epsom Salt) [Epsom Salt (*)] 1 amy TP DAILY PRN 08/20/17 [Last Taken Unknown] Magnesium Hydroxide [Milk of Magnesia] 30 ml PO DAILY PRN 08/20/17 [Last Taken Unknown] Metoprolol Tartrate [Lopressor 100 mg (*)] 100 mg PO BID 08/20/17 [Last Taken 21:00] Mirabegron [Myrbetriq] 25 mg PO DAILY18 08/20/17 [Last Taken 08/19/17] Omeprazole [Prilosec 20 mg] 20 mg PO DAILY 08/20/17 [Last Taken 08/19/17] Potassium Cl [Klor-Con 20 meq (*)] 20 meq PO DAILY 08/20/17 [Last Taken 08/19/17 ] Primidone [Primidone 250mg (*)] 250 mg PO BID 08/20/17 [Last Taken 08/19/17 21: 00] Propylene Glycol [Systane Balance] 1 drop EACHEYE TID PRN 08/20/17 [Last Taken Unknown] Simethicone [Gas-X] 1 each PO TID PRN 08/20/17 [Last Taken Unknown] Spironolactone [Aldactone 25 MG (*)] 12.5 mg PO DAILY 08/20/17 [Last Taken 08/19] Trolamine Salicylate [Aspercreme] 1 amy TP DAILY PRN 08/20/17 [Last Taken Unknown] guaiFENesin [Guaifenesin] 15 ml PO Q4HRS PRN 08/20/17 [Last Taken Unknown] guaiFENesin [Mucinex 600 MG (*)] 600 mg PO BID PRN 08/20/17 [Last Taken Unknown] oxyCODONE IR [Oxycodone Ir (*)] 5 - 10 mg PO Q4HRS PRN 08/20/17 [Last Taken Unknown] - NPO status NPO Status: no food or drink >8 hours NPO Since - Liquids (Date): 08/20/17 NPO Since - Liquids (Time): 00:00 NPO Since - Solids (Date): 08/20/17 NPO Since - Solids (Time): 00:00 - Anes Hx Anes Hx: no prior problems - Smoking Hx Smoking Status: Never smoked Marijuana use: No - Alcohol Use Alcohol Use: None - Family Anes Hx Family Anes Hx: neg - N/A Family Hx Anesthesia Complications: none ANE Labs/Vital Signs - Labs Result Diagrams: 08/21/17 05:18 08/21/17 05:18 - Vital Signs Vital Signs: reviewed preoperatively; see RN documention for details Blood Pressure: 143/113 Heart Rate: 112 Respiratory Rate: 20 O2 Sat (%): 95 Height: 167.64 cm Weight: 57.153 kg ANE Physical Exam - Airway Neck exam: decreased ROM Mallampati Score: Class 1 Mouth exam: normal dental/mouth exam (implants) - Pulmonary Pulmonary: no respiratory distress - ASA Status ASA Status: IV ANE Anesthesia Plan Anesthesia Plan: general endotracheal anesthesia Total IV Anesthesia: No
[2017-08-21] MEDS ORDERED: HEPARIN 1000 UNIT/1 ML MDV ONE (17:41)
[2017-08-21] MEDS ORDERED: ceFAZolin 1 GM/5 ML SYR ONE (17:41)
[2017-08-21] MEDS ORDERED: BUPIVACAINE 0.5% 30 ML SDV ONE (17:41)
[2017-08-21] MEDS ORDERED: PROPOFOL 200 MG/20 ML VIAL ONE (17:57)
[2017-08-21] MEDS ORDERED: fentaNYL 100 MCG/2 ML INJ ONE (17:57)
[2017-08-21] MEDS ORDERED: PHENYLEPHRINE HCL 100 MCG/ML SYR ONE (18:06)
[2017-08-21] MEDS ORDERED: DEXAMETHASONE 4 MG/ML VIAL ONE (19:04)
[2017-08-21] MEDS ORDERED: ONDANSETRON 4 MG/2 ML VIAL ONE (19:04)
[2017-08-21] MEDS ORDERED: ROCURONIUM 50 MG/5 ML VIAL ONE (19:05)
[2017-08-21] MEDS ORDERED: LIDOCAINE 2% 5 ML SDV ONE (19:05)
--- NOTE | 2017-08-21 19:18 | POSTOPPROG ---
Post Op Note Date of Operation: 08/21/17 Surgeon: Charles Reese Cooperer: KATI Anesthesiologist: VI Anesthesia: GET(General Endotracheal) Pre-op Diagnosis: SBO Post-op Diagnosis: SBO Indication: OBSTRUCTION Procedure: LAP ADHESIOLYSIS WITH REDUCTION OF INTERNAL HERNIA Findings: SINGLE BAND WITH COMPLETE SBO Inf/Abcess present in the surg proc area at time of surgery?: No Depth: Organ Space EBL: Minimal Complications: 0
[2017-08-21] MEDS ORDERED: ONDANSETRON 4 MG/2 ML VIAL IVP PRN (19:21)
[2017-08-21] MEDS ORDERED: fentaNYL 100 MCG/2 ML INJ IVP PRN (19:29)
[2017-08-21] MEDS ORDERED: LR 500 ML IV PRN (19:29)
[2017-08-21] MEDS ORDERED: NALOXONE HCL 0.4 MG/ML INJ IVP PRN (19:29)
--- NOTE | 2017-08-21 20:07 | POSTANESTH ---
Post Anesthetic Evaluation Cardiovascular Status: Normal, Stable, Similar to Pre-Op Cond (Continues to have A. Fib) Respiratory Status: Normal, Stable, Similar to Pre-op Cond. (Required 2L/min in preop) Level of Consciousness/Mental Status: Other, See Comment (Patient has baseline dementia;) Pain Control: Adequate, Prn Tx Ordered, Inadeq, Add Tx Required Nausea/Vomiting Control: Adequate, Prn Tx Ordered, Inadeq, Add Tx Reqired Complications Possibly Related to Anesthesia: None Noted
[2017-08-21] MEDS ORDERED: LABETALOL HCL 5 MG/ML 20 ML MDV IV ONE (20:11)
[2017-08-21] MEDS ORDERED: LABETALOL HCL 5 MG/ML 20 ML MDV ONE (20:14)
[2017-08-21] MEDS: D5W 1/2 NS W/ 20 KCl/L 1,000 ML IV SCH (21:14)
[2017-08-22] MEDS: METOPROLOL TARTRATE 5 MG/5 ML INJ IVP SCH ×4 (01:27→17:40)
[2017-08-22] MEDS: D5W 1/2 NS W/ 20 KCl/L 1,000 ML IV SCH ×2 (06:58→17:40)
[2017-08-22] MEDS: guaiFENesin 600 MG TAB.ER PO SCH ×2 (10:01→19:52)
--- NOTE | 2017-08-22 11:57 | HOSPPROG ---
Hospitalist Progress Note Assessment/Plan: Patient is an 87-year-old female with a cardiac history who presented the emergency room with abdominal pain nausea and vomiting. Reviewed her imaging and labs; First encounter, chart reviewed. *persistent small bowel obstruction POD #1 lysis and hernia repair CT showed a high grade small bowel obstruction cont NGT per surgery * abdominal pain with associated nausea and vomiting none further * mitral valve replacement Will hold Eliquis for now will need this resumed soon * atrial fibrillation hold all meds for now will add her beta sebas for IV use to avoid Afib w RVR restart when able to take PO * acute kidney injury creat is 0.8/resolved *HTN: scheduled Metoprolol/ this dose may need to be increased *Leukocytosis resolved *Mild dementia Plan: she will need Eliquis resumed after surgery or treatment with Lovenox, repeat labs in a.m. doing well Subjective: No pain currently. Feeling ok. Objective: Vital Signs Temp Pulse Resp BP Pulse Ox 36.5 C 111 H 18 151/106 H 94 08/22/17 08:00 08/22/17 10:28 08/22/17 08:00 08/22/17 10:28 08/22/17 08:00 Laboratory Results 08/21/17 05:18 08/21/17 05:18 08/21/17 08/22/17 08/23/17 05:59 05:59 05:59 Intake Total 4708 509 541 Output Total 550 350 Balance 4158 159 541 - Physical Exam Constitutional: no apparent distress, appears nourished, not in pain Eyes: PERRL, anicteric sclera, EOMI Ears, Nose, Mouth, Throat: moist mucous membranes, hearing normal, ears appear normal, other (NGT) Cardiovascular: No JVD, No tachycardia, No edema Respiratory: no respiratory distress, no rales or rhonchi, reduced air movement Gastrointestinal: tenderness, No normoactive bowel sounds, No ascites, No guarding Skin: warm, normal color, No erythema Musculoskeletal: normal joint ROM, no joint effusions, generalized weakness Neurologic: AAOx3 Psychiatric: interacting appropriately, not anxious, not encephalopathic, poor memory ICD10 Worksheet Patient Problems: Problems Problem Status Onset Muscle weakness Active
--- NOTE | 2017-08-22 17:41 | SOAPPROG ---
SOAP Progress Note Assessment/Plan: Assessment: 87yo F with hx of dementia, cardiac issues presenting with SBO. Now POD #1 from ex lap and adhesiolysis Recovering well. Afebrile D/c NGT Adv to clear liquid diet Awaiting return of bowel function Cont pain control S: complaining of NGT being irritating and wanting to eat. Pain controlled. Denies N/V. No flatus or BM yet. O: Pt lying in bed, appears comfortable MMM RRR Lungs CTAB Abd soft, nontender. rare BS Objective: Vital Signs Temp Pulse Resp BP Pulse Ox 36.6 C 115 H 18 153/105 H 92 08/22/17 16:00 08/22/17 16:00 08/22/17 16:00 08/22/17 16:00 08/22/17 16:00 Laboratory Results 08/21/17 05:18 08/21/17 05:18 08/21/17 08/22/17 08/23/17 05:59 05:59 05:59 Intake Total 4708 509 541 Output Total 550 350 Balance 4158 159 541 ICD10 Worksheet Patient Problems: Problems Problem Status Onset Muscle weakness Active
[2017-08-23] MEDS: METOPROLOL TARTRATE 5 MG/5 ML INJ IVP SCH ×2 (01:22→06:12)
[2017-08-23] MEDS: D5W 1/2 NS W/ 20 KCl/L 1,000 ML IV SCH (04:00)
[2017-08-23 04:55] LABS: HEMATOCRIT 38.5 % (38.0-47.0); HEMOGLOBIN 12.6 g/dL (12.6-16.3); MEAN CELL HEMOGLOBIN 34.6 pg (27.9-34.1); MEAN CELL HEMOGLOBIN CONCENTR. 32.7 g/dL (32.4-36.7); MEAN CELL VOLUME 105.8 fL (81.5-99.8); RED BLOOD CELL COUNT 3.64 10^6/uL (4.18-5.33); RED CELL DISTRIBUTION WIDTH 13.1 % (11.5-15.2)
[2017-08-23 05:08] LABS: ANION GAP 7 mEq/L (8-16); CALCIUM 8.8 mg/dL (8.5-10.4); CARBON DIOXIDE 24 mEq/l (22-31); CHLORIDE 108 mEq/L (97-110); CREATININE 0.8 mg/dL (0.6-1.0); GLOMERULAR FILTRATION RATE > 60; GLUCOSE 103 mg/dL (70-100); POTASSIUM 4.2 mEq/L (3.5-5.2); SODIUM 139 mEq/L (134-144)
[2017-08-23] MEDS: guaiFENesin 600 MG TAB.ER PO SCH ×2 (06:12→21:25)
[2017-08-23] MEDS: HYDROCODONE/APAP 5/325 TAB PO PRN ×2 (07:45→21:24)
[2017-08-23] MEDS ORDERED: DICLOFENAC SODIUM 1% 100 GM GEL TP PRN (10:28)
[2017-08-23] MEDS ORDERED: BENZONATATE 100 MG CAP PO PRN (10:28)
[2017-08-23] MEDS ORDERED: ACETAMINOPHEN 325 MG TAB PO PRN (10:28)
[2017-08-23] MEDS ORDERED: CHOLESTYRAMINE/SUCROSE 4 GM PKT PO PRN (10:28)
[2017-08-23] MEDS: METOPROLOL TARTRATE 100 MG TAB PO SCH ×2 (11:07→21:25)
[2017-08-23] MEDS: DIGOXIN 125 MCG TAB PO SCH (11:09)
[2017-08-23] MEDS: DILTIAZEM CD 120 MG CAP PO SCH (11:09)
--- NOTE | 2017-08-23 11:34 | ASMTCMCOM ---
CM Note CM Note Notes: Spoke w/pt and niece Yuli, re; dc poc. Pt declines homecare, would rather continue with services provided through [facility]. CM to notify [facility] when pt discharges, possibly later today, niece to transport pt when ready. Date Signed: 08/23/2017 11:33 AM Electronically Signed By:Vi Munoz RN
[2017-08-23] MEDS ORDERED: LORazepam 2 MG/ML INJ IVP PRN (13:58)
--- NOTE | 2017-08-23 14:13 | SOAPPROG ---
SOAP Progress Note Assessment/Plan: Assessment: 87yo F with hx of dementia, cardiac issues presenting with SBO. Now POD #1 from ex lap and adhesiolysis Recovering well. Afebrile D/c NGT Adv to clear liquid diet Awaiting return of bowel function Cont pain control S: complaining of NGT being irritating and wanting to eat. Pain controlled. Denies N/V. No flatus or BM yet. O: Pt lying in bed, appears comfortable MMM RRR Lungs CTAB Abd soft, nontender. rare BS Objective: Vital Signs Temp Pulse Resp BP Pulse Ox 36.6 C 103 H 18 154/96 H 95 08/23/17 12:00 08/23/17 12:00 08/23/17 12:00 08/23/17 12:00 08/23/17 12:00 Laboratory Results 08/23/17 04:27 08/23/17 04:27 08/22/17 08/23/17 08/24/17 05:59 05:59 05:59 Intake Total 509 2590 233 Output Total 350 300 250 Balance 159 2290 -17 ICD10 Worksheet Patient Problems: Problems Problem Status Onset Muscle weakness Active
--- NOTE | 2017-08-23 15:29 | HOSPPROG ---
Hospitalist Progress Note Assessment/Plan: Patient is an 87-year-old female with a cardiac history who presented the emergency room with abdominal pain nausea and vomiting. *persistent small bowel obstruction POD #2 lysis and hernia repair CT showed a high grade small bowel obstruction NGT removed * abdominal pain with associated nausea and vomiting none further * mitral valve replacement restart Eliquis * atrial fibrillation restart home meds tachy reviewed with Dr Reese * acute kidney injury creat is 0.8/resolved *HTN: restart home meds *Leukocytosis resolved *Mild dementia *Anxiety PRN ativan Plan:cont supportive care, slow going will return to [facility] assisted when ready Subjective: C/O anxiety. No pain. Having tremor. Objective: Vital Signs Temp Pulse Resp BP Pulse Ox 36.6 C 103 H 18 154/96 H 95 08/23/17 12:00 08/23/17 12:00 08/23/17 12:00 08/23/17 12:00 08/23/17 12:00 Laboratory Results 08/23/17 04:27 08/23/17 04:27 08/22/17 08/23/17 08/24/17 05:59 05:59 05:59 Intake Total 509 2590 233 Output Total 350 300 250 Balance 159 2290 -17 - Physical Exam Constitutional: appears nourished, not in pain, uncomfortable Eyes: PERRL, anicteric sclera, EOMI Ears, Nose, Mouth, Throat: moist mucous membranes, hearing normal, ears appear normal Cardiovascular: irregularly irregular, tachycardia, No JVD Respiratory: no respiratory distress, no rales or rhonchi, reduced air movement Gastrointestinal: tenderness, No normoactive bowel sounds, No ascites, No guarding Skin: warm, normal color, No erythema Musculoskeletal: normal joint ROM, no joint effusions, generalized weakness Psychiatric: not encephalopathic, thought process linear, anxious, poor insight ICD10 Worksheet Patient Problems: Problems Problem Status Onset Muscle weakness Active
[2017-08-23] MEDS: ACETAMINOPHEN 500 MG TAB PO SCH (17:49)
[2017-08-23] MEDS: DONEPEZIL HCL 5 MG TAB PO SCH (17:49)
[2017-08-23] MEDS: Mirabegron [Myrbetriq] 25 MG PO SCH (18:02)
[2017-08-23] MEDS: APIXABAN 2.5 MG TAB PO SCH (21:25)
[2017-08-23] MEDS: FUROSEMIDE 20 MG TAB PO SCH (21:25)
[2017-08-24] MEDS: HYDROCODONE/APAP 5/325 TAB PO PRN ×2 (03:13→19:47)
[2017-08-24] MEDS: DILTIAZEM CD 120 MG CAP PO SCH (08:08)
[2017-08-24] MEDS: guaiFENesin 600 MG TAB.ER PO SCH ×2 (08:09→19:47)
[2017-08-24] MEDS: SPIRONOLACTONE 25 MG TAB PO SCH (08:09)
[2017-08-24] MEDS: METOPROLOL TARTRATE 100 MG TAB PO SCH ×2 (08:12→19:46)
[2017-08-24] MEDS: DIGOXIN 125 MCG TAB PO SCH (08:12)
[2017-08-24] MEDS: APIXABAN 2.5 MG TAB PO SCH ×2 (08:14→19:47)
[2017-08-24] MEDS: FUROSEMIDE 20 MG TAB PO SCH (08:14)
--- NOTE | 2017-08-24 09:49 | SOAPPROG ---
SOAP Progress Note Assessment/Plan: Assessment: 87yo F s/p single band adhesiolysis - great bowel sounds, having bowel function tolerating clears, will ADAT today C/o breathing and chest discomfort, lasix this AM, CXR pending. Workup per IM. OK for dc from surgical standpoint whenever medically appropriate Plan: 08/24/17 09:48 Objective: Vital Signs Temp Pulse Resp BP Pulse Ox 36.6 C 84 20 148/102 H 94 08/24/17 07:22 08/24/17 07:22 08/24/17 07:22 08/24/17 07:22 08/24/17 07:22 Laboratory Results 08/23/17 04:27 08/23/17 04:27 08/23/17 08/24/17 08/25/17 05:59 05:59 05:59 Intake Total 2590 433 Output Total 300 450 Balance 2290 -17 ICD10 Worksheet Patient Problems: Problems Problem Status Onset Muscle weakness Active
--- NOTE | 2017-08-24 09:56 | HOSPPROG ---
Hospitalist Progress Note Assessment/Plan: 87-year-old female with PMH SSS/ppm, likely permanent AF on rate control/AC, bioAVR, htn, who presented the emergency room with abdominal pain nausea and vomiting. Reviewed her imaging and labs; First encounter, chart reviewed. *persistent small bowel obstruction POD #[address] lysis and hernia repair CT showed a high grade small bowel obstruction surgery has D/C'd NGT and is placing patient on diet * abdominal pain with associated nausea and vomiting none further * Bio-mitral valve replacement/ Dr. Castellanos follows pt * atrial fibrillation- likely permanent back on PO rate controlling meds that include Metoprolol, Dilt, Dig Eliquis on hold will review with gen surgery if she may resume today [id number] elevated at least 4 *CHF: likely volume overload/ will change PO lasix to IV dosing follow up with Dr. Castellanos in outpatient setting * acute kidney injury creat is 0.8/resolved *HTN: BP still a bit above goal *hypoxia: typically not on O2 now requiring 3 lpm CXR showing vol O/L *congestion: pt requests throat lozenge *Leukocytosis resolved *Mild dementia Plan: IV lasix today Subjective: Reports feeling throat is hoarse. Noting cough. Feeling dyspneic at rest. Objective: Vital Signs Temp Pulse Resp BP Pulse Ox 97.9 F 84 20 148/102 H 94 08/24/17 07:22 08/24/17 07:22 08/24/17 07:22 08/24/17 07:22 08/24/17 07:22 Laboratory Results 08/23/17 04:27 08/23/17 04:27 08/23/17 08/24/17 08/25/17 05:59 05:59 05:59 Intake Total 2590 433 Output Total 300 450 Balance 2290 -17 - Physical Exam Constitutional: no apparent distress Eyes: PERRL Ears, Nose, Mouth, Throat: moist mucous membranes Cardiovascular: irregularly irregular, JVD Respiratory: reduced air movement Gastrointestinal: normoactive bowel sounds, distension Skin: warm, normal color Psychiatric: interacting appropriately, not anxious ICD10 Worksheet Patient Problems: Problems Problem Status Onset Muscle weakness Active
[2017-08-24] MEDS ORDERED: CEPACOL LOZENGE PO PRN (10:31)
[2017-08-24] MEDS ORDERED: FUROSEMIDE 40 MG/4 ML VIAL IVP ONE (10:31)
[2017-08-24] MEDS ORDERED: PHENOL 177 ML THROAT SPRAY PO PRN (10:31)
[2017-08-24] MEDS: FUROSEMIDE 40 MG/4 ML VIAL IVP SCH ×2 (12:38→15:39)
[2017-08-24] MEDS: OXYMETAZOLINE 30 ML NASAL SPRAY EACHNARE SCH ×2 (15:43→20:03)
--- NOTE | 2017-08-24 16:16 | ASMTCMCOM ---
CM Note CM Note Notes: Today therapist let me know that she is recommending SNF rehab for Pt. Pt. and niece Yuli agree with SNF at [place] as d/c plan. Matti called [place] and eventually spoke w/ Johnna (please don't give this number to family) who work in the rehab section of [place]. Johnna preparing for d/c tomorrow if indicated. Pt. will go to "[facility]" section of [place]. Yuli plans to drive Pt. there and both Pt. and Yuli feel good about that plan. Pt. on 3L O2 today. CM to follow for d/c POC. Date Signed: 08/24/2017 04:16 PM Electronically Signed By:Clementina Hagen LCSW
[2017-08-24] MEDS: DONEPEZIL HCL 5 MG TAB PO SCH (17:12)
[2017-08-24] MEDS: ACETAMINOPHEN 500 MG TAB PO SCH (17:12)
[2017-08-24] MEDS: Mirabegron [Myrbetriq] 25 MG PO SCH (17:14)
[2017-08-25] MEDS: HYDROCODONE/APAP 5/325 TAB PO PRN (00:25)
[2017-08-25 04:39] LABS: % IMMATURE GRANULYOCYTES 0.4 % (0.0-1.1); ABSOLUTE IMMATURE GRANULOCYTES 0.03 10^3/uL (0.00-0.10); ADD DIFF? NO; ADD MORPH? NO; ADD SCAN? NO; ATYPICAL LYMPHOCYTE FLAG 10 (0-99); FRAGMENT RBC FLAG 0 (0-99); HEMATOCRIT 36.1 % (38.0-47.0); HEMOGLOBIN 12.4 g/dL (12.6-16.3); LEFT SHIFT FLG 0 (0-99); LIPEMIA HEMOLYSIS FLAG 90 (0-99); MEAN CELL HEMOGLOBIN 34.6 pg (27.9-34.1); MEAN CELL HEMOGLOBIN CONCENTR. 34.3 g/dL (32.4-36.7); MEAN CELL VOLUME 100.8 fL (81.5-99.8); MEAN PLATELET VOLUME 11.3 fL (8.7-11.7); PLATELET CLUMPS FLAG 10 (0-99); PLATELET COUNT 140 10^3/uL (150-400); RED BLOOD CELL COUNT 3.58 10^6/uL (4.18-5.33); RED CELL DISTRIBUTION WIDTH 12.9 % (11.5-15.2)
[2017-08-25 04:55] LABS: ANION GAP 7 mEq/L (8-16); CALCIUM 8.5 mg/dL (8.5-10.4); CARBON DIOXIDE 26 mEq/l (22-31); CHLORIDE 102 mEq/L (97-110); CREATININE 0.8 mg/dL (0.6-1.0); GLOMERULAR FILTRATION RATE > 60; GLUCOSE 88 mg/dL (70-100); POTASSIUM 3.2 mEq/L (3.5-5.2); SODIUM 135 mEq/L (134-144)
[2017-08-25] MEDS: DIGOXIN 125 MCG TAB PO SCH (08:29)
[2017-08-25] MEDS: SPIRONOLACTONE 25 MG TAB PO SCH (08:29)
[2017-08-25] MEDS: FUROSEMIDE 40 MG/4 ML VIAL IVP SCH ×2 (08:29→15:44)
[2017-08-25] MEDS: guaiFENesin 600 MG TAB.ER PO SCH ×2 (08:29→20:24)
[2017-08-25] MEDS: APIXABAN 2.5 MG TAB PO SCH ×2 (08:29→20:25)
[2017-08-25] MEDS: METOPROLOL TARTRATE 100 MG TAB PO SCH ×2 (08:29→20:24)
[2017-08-25] MEDS: DILTIAZEM CD 120 MG CAP PO SCH (08:30)
[2017-08-25] MEDS: OXYMETAZOLINE 30 ML NASAL SPRAY EACHNARE SCH ×2 (08:30→20:26)
[2017-08-25] MEDS ORDERED: PROTOCOL POTASSIUM 1 DOSE MISC PRN (09:02)
--- NOTE | 2017-08-25 09:14 | SOAPPROG ---
DUNG Progress Note Assessment/Plan: Assessment: 87yo F s/p single band adhesiolysis - has great bowel sounds, tolerating a regular diet with appropriate bowel function. Plan: 08/24/17 09:48 08/25/17 09:14 Subjective: No complaints Objective: Vital Signs Temp Pulse Resp BP Pulse Ox 36.4 C 115 H 20 132/90 H 91 L 08/25/17 07:23 08/25/17 08:39 08/25/17 07:23 08/25/17 07:23 08/25/17 08:39 Laboratory Results 08/25/17 04:21 08/25/17 04:21 08/24/17 08/25/17 08/26/17 05:59 05:59 05:59 Intake Total 433 Output Total 450 Balance -17 ICD10 Worksheet Patient Problems: Problems Problem Status Onset Muscle weakness Active
[2017-08-25] MEDS ORDERED: METOPROLOL TARTRATE 25 MG TAB PO ONE (09:59)
[2017-08-25] MEDS ORDERED: METOPROLOL TARTRATE 100 MG TAB PO SCH (10:03)
--- NOTE | 2017-08-25 10:12 | HOSPPROG ---
Hospitalist Progress Note Assessment/Plan: 87-year-old female with PMH SSS/ppm, likely permanent AF on rate control/AC, bioAVR, htn, who presented the emergency room with abdominal pain, nausea and vomiting. Found to have SBO s/p single band adhesiolysis. *persistent small bowel obstruction POD #4 lysis and hernia repair CT showed a high grade small bowel obstruction surgery has D/C'd NGT and pt is tolerating diet * abdominal pain with associated nausea and vomiting none further * Bio-mitral valve replacement/ Dr. Castellanos follows pt * atrial fibrillation- likely permanent back on PO rate controlling meds that include Metoprolol, Dilt, Dig Eliquis resumed [id number] elevated at least 4 rates a little elevated/ will increase Metoprolol to 125 PO BID *CHF: likely volume overload/ changed PO lasix to IV dosing CXR from yesterday showing volume overload now back on RA follow up with Dr. Castellanos in outpatient setting BNP 12K with previous 4K (03/11) * acute kidney injury creat is 0.8/resolved *HTN: BP still a bit above goal increase Metoprolol today *hypoxia: typically not on O2 but was having O2 requirement yesterday now back on RA *congestion: pt requests throat lozenge *Leukocytosis resolved *Mild dementia Plan: more IV lasix today and increase Metoprolol Subjective: Feels congestion and cough improved. Pedal/ankle edema stable. Objective: Vital Signs Temp Pulse Resp BP Pulse Ox 97.5 F 115 H 20 132/90 H 91 L 08/25/17 07:23 08/25/17 08:39 08/25/17 07:23 08/25/17 07:23 08/25/17 08:39 Laboratory Results 08/25/17 04:21 08/25/17 04:21 08/24/17 08/25/17 08/26/17 05:59 05:59 05:59 Intake Total 433 Output Total 450 Balance - - Physical Exam Constitutional: no apparent distress, appears nourished Eyes: PERRL Ears, Nose, Mouth, Throat: moist mucous membranes Cardiovascular: irregularly irregular, tachycardia Respiratory: no respiratory distress, other (mildly diminished in bases) Gastrointestinal: normoactive bowel sounds Skin: warm, normal color, other (1+ edema) Psychiatric: interacting appropriately, not anxious ICD10 Worksheet Patient Problems: Problems Problem Status Onset Muscle weakness Active
[2017-08-25] MEDS ORDERED: POTASSIUM CL 10 MEQ TAB PO ONE ×2 (10:19→19:15)
[2017-08-25 17:57] LABS: POTASSIUM 3.7 mEq/L (3.5-5.2)
[2017-08-25] MEDS: ACETAMINOPHEN 500 MG TAB PO SCH (17:57)
[2017-08-25] MEDS: DONEPEZIL HCL 5 MG TAB PO SCH (17:57)
[2017-08-25] MEDS: Mirabegron [Myrbetriq] 25 MG PO SCH (17:59)
[2017-08-25] MEDS: METOPROLOL TARTRATE 25 MG TAB PO SCH (20:24)
[2017-08-26 05:39] LABS: POTASSIUM 3.6 mEq/L (3.5-5.2)
[2017-08-26] MEDS: APIXABAN 2.5 MG TAB PO SCH ×2 (09:01→21:55)
[2017-08-26] MEDS: DILTIAZEM CD 120 MG CAP PO SCH (09:01)
[2017-08-26] MEDS: guaiFENesin 600 MG TAB.ER PO SCH ×2 (09:02→21:55)
[2017-08-26] MEDS: DIGOXIN 125 MCG TAB PO SCH (09:02)
[2017-08-26] MEDS: METOPROLOL TARTRATE 100 MG TAB PO SCH ×2 (09:02→21:56)
[2017-08-26] MEDS: METOPROLOL TARTRATE 25 MG TAB PO SCH ×2 (09:02→21:56)
[2017-08-26] MEDS: SPIRONOLACTONE 25 MG TAB PO SCH (09:03)
[2017-08-26] MEDS: FUROSEMIDE 40 MG/4 ML VIAL IVP SCH ×2 (09:03→15:51)
--- NOTE | 2017-08-26 09:30 | SOAPPROG ---
SOAP Progress Note Assessment/Plan: Assessment: 87yo F with hx of dementia, cardiac issues presenting with SBO s/p ex lap and adhesiolysis Tolerating regular diet Appropriate bowel function Dispo: ok from a surgical standpoint. S: complaining of cold room and not having had her tremor meds yet this morning. Otherwise feeling well, tolerating diet, and having BMs O: Pt lying in bed MMM RRR Lungs CTAB Abd soft, nontender. + BS Objective: Vital Signs Temp Pulse Resp BP Pulse Ox 36.4 C 100 18 146/68 H 94 08/26/17 08:00 08/26/17 08:00 08/26/17 08:00 08/26/17 08:00 08/26/17 08:00 Laboratory Results 08/25/17 04:21 08/26/17 04:23 08/25/17 08/26/17 08/27/17 05:59 05:59 05:59 Intake Total 550 Output Total 102 Balance 448 ICD10 Worksheet Patient Problems: Problems Problem Status Onset Muscle weakness Active
[2017-08-26] MEDS: OXYMETAZOLINE 30 ML NASAL SPRAY EACHNARE SCH ×2 (10:15→21:58)
[2017-08-26] MEDS ORDERED: POTASSIUM CL 10 MEQ TAB PO ONE ×2 (11:28→21:09)
--- NOTE | 2017-08-26 12:04 | ASMTCMCOM ---
CM Note CM Note Notes: CM spoke w/ TERRI Evans and Mal RN regarding d/c POC. X-Ray is being ordered. Pt is being discharged today to [facility]. CM notified [facility] of pts discharge. CM met w/ pt and pts niece for dispo planning. Pt is aware that [facility] will only pay for therapy and pt will need to pay for room and board. Pts niece will be transporting pt to [place]. CM faxed over d/c paperwork. CM gave RN phone number to give report. CM available for changes. Date Signed: 08/26/2017 12:03 PM Electronically Signed By:HEIDY Orellana
[2017-08-26] MEDS ORDERED: MAGNESIUM HYDROXIDE 30 ML UDCUP PO ONE (15:01)
[2017-08-26] MEDS ORDERED: MAGNESIUM CITRATE 300 ML BOTTLE PO ONE (15:02)
--- NOTE | 2017-08-26 15:34 | HOSPPROG ---
Hospitalist Progress Note Assessment/Plan: 87-year-old female with PMH SSS/ppm, likely permanent AF on rate control/AC, bioAVR, htn, who presented the emergency room with abdominal pain, nausea and vomiting. Found to have SBO s/p single band adhesiolysis. *persistent small bowel obstruction POD #[address] lysis [address]nia repair CT showed a high grade small bowel obstruction surgery has D/C'd NGT and pt is tolerating diet KUB still abnormal, reviewed with Dr Reese * abdominal pain with associated nausea and vomiting none further * Bio-mitral valve replacement/ Dr. Castellanos follows pt * atrial fibrillation- likely permanent back on PO rate controlling meds that include Metoprolol, Dilt, Dig Eliquis resumed [id number] elevated at least 4 rates a little elevated/ will increase Metoprolol to 125 PO BID *CHF: likely volume overload/PO lasix CXR showing volume overload now back on RA follow up with Dr. Castellanos in outpatient setting BNP 12K with previous 4K (03/11) * acute kidney injury creat is 0.8/resolved *HTN: BP still a bit above goal increase Metoprolol today *hypoxia: typically not on O2 but was having O2 requirement yesterday now back on RA *congestion: pt requests throat lozenge *Leukocytosis resolved *Mild dementia Plan: cont supportive care, DC home soon when ok with Dr Reese reviewed with CM. Subjective: Up in chair. Feels distended. Still having abd issues. Objective: Vital Signs Temp Pulse Resp BP Pulse Ox 36.6 C 78 16 112/70 94 08/26/17 12:00 08/26/17 12:00 08/26/17 12:00 08/26/17 12:00 08/26/17 12:00 Laboratory Results 08/25/17 04:21 08/26/17 04:23 08/25/17 08/26/17 08/27/17 05:59 05:59 05:59 Intake Total 550 Output Total 102 200 Balance 448 -200 - Physical Exam Constitutional: no apparent distress, not in pain, uncomfortable Eyes: PERRL, anicteric sclera, EOMI Ears, Nose, Mouth, Throat: moist mucous membranes, hearing normal, ears appear normal Cardiovascular: No JVD, No tachycardia, No edema Respiratory: no respiratory distress, no rales or rhonchi, reduced air movement Gastrointestinal: distension, No ascites, No guarding Skin: warm, normal color, No erythema Musculoskeletal: normal joint ROM, no joint effusions, generalized weakness Psychiatric: not encephalopathic, anxious, poor insight, poor judgement, poor memory ICD10 Worksheet Patient Problems: Problems Problem Status Onset Muscle weakness Active
--- NOTE | 2017-08-26 16:03 | ASMTCMCOM ---
CM Note CM Note Notes: Pts discharge is postponed until she is more medically stable. CM spoke w/ pts neice and niece will notify [facility]. Transportation will need to be set up w/ [facility] at time of d/c. CM to follow. Date Signed: 08/26/2017 04:02 PM Electronically Signed By:HEIDY Orellana
[2017-08-26] MEDS: DONEPEZIL HCL 5 MG TAB PO SCH (17:28)
[2017-08-26] MEDS: ACETAMINOPHEN 500 MG TAB PO SCH (17:28)
[2017-08-26] MEDS: Mirabegron [Myrbetriq] 25 MG PO SCH (18:05)
[2017-08-26 18:51] LABS: POTASSIUM 3.3 mEq/L (3.5-5.2)
[2017-08-26] MEDS: FUROSEMIDE 20 MG TAB PO SCH (21:57)
--- NOTE | 2017-08-27 05:26 | GOP ---
[f rep st] OPERATIVE REPORT DATE OF OPERATION: 08/21/2017 SURGEON: Charles Reese MD COMPENSATION INTERN: Elizabet Barrios PA-C ANESTHESIOLOGIST: Dr. Perry. PREOPERATIVE DIAGNOSIS: Small bowel obstruction. POSTOPERATIVE DIAGNOSIS: Small bowel obstruction. PROCEDURE PERFORMED: Laparoscopic lysis of adhesions with release of small bowel obstruction. FINDINGS: Patient was found to have a single band causing a complete small bowel obstruction. DESCRIPTION OF PROCEDURE: Patient was taken to the operating room where she received satisfactory ge neral endotracheal anesthesia. She was prepped and draped in the usual sterile fashion. Periumbilic al incision was made. A Veress needle inserted, pneumoperitoneum was established. Trocar was introd uced. Good visualization was obtained. Two other trocars were placed in the lower abdomen under dir ect vision. The small bowel obstruction was identified. There was a single fibrous band going from the omentum t o the sigmoid colon, causing a complete bowel obstruction. This was elevated up and divided with the Harmonic scalpel, freeing up the small bowel. The bowel resumed its normal viable color. The bowel was run from the ligament of Treitz to the ileocecal valve with no evidence of any other adhesive ba nds or obstructive areas. She tolerated the procedure quite well. Pneumoperitoneum was released and trocars were removed under direct vision. Trocar sites were closed with 4-0 Monocryl subcuticular s titch for the skin. All layers were infiltrated with % Marcaine. Blood loss was negligibl e. Taken to recovery room in good condition. There were no complications. /[id number]/MODL
[2017-08-27 05:30] LABS: POTASSIUM 3.8 mEq/L (3.5-5.2)
[2017-08-27 07:35] VITALS: BP 142/80; TEMP 97.9
[2017-08-27] MEDS: METOPROLOL TARTRATE 25 MG TAB PO SCH (08:38)
[2017-08-27] MEDS: guaiFENesin 600 MG TAB.ER PO SCH (08:38)
[2017-08-27] MEDS: SPIRONOLACTONE 25 MG TAB PO SCH (08:38)
--- NOTE | 2017-08-27 08:38 | HOSPPROG ---
Hospitalist Progress Note Assessment/Plan: 87-year-old female with PMH SSS/ppm, likely permanent AF on rate control/AC, bioAVR, htn, who presented the emergency room with abdominal pain, nausea and vomiting. Found to have SBO s/p single band adhesiolysis. *persistent small bowel obstruction POD #5 lysis and hernia repair eating and drinking well today * abdominal pain with associated nausea and vomiting none further * Bio-mitral valve replacement/ Dr. Castellanos follows pt * atrial fibrillation- likely permanent back on PO rate controlling meds that include Metoprolol, Dilt, Dig Eliquis resumed [id number] elevated at least 4 rates a little elevated/ will increase Metoprolol to 125 PO BID *CHF: likely volume overload/PO lasix repeat chest xray shows improvement now back on RA follow up with Dr. Castellanos in outpatient setting BNP 12K with previous 4K (03/11) * acute kidney injury creat is 0.8/resolved *HTN: bp overall stable increase Metoprolol today *hypoxia: resolved *congestion: pt requests throat lozenge *Leukocytosis resolved *Mild dementia Plan: dc today/on room air/ further f/u with Dr Reese/ f/u with Dr Castellanos Subjective: Pat has no complaints/ feeling well today. Objective: Vital Signs Temp Pulse Resp BP Pulse Ox 36.6 C 105 H 18 142/80 H 91 L 08/27/17 07:34 08/27/17 07:34 08/27/17 07:34 08/27/17 07:34 08/27/17 07:34 Laboratory Results 08/25/17 04:21 08/27/17 04:40 08/26/17 08/27/17 08/28/17 05:59 05:59 05:59 Intake Total 550 680 Output Total 102 600 Balance 448 80 - Physical Exam Constitutional: no apparent distress, appears nourished, not in pain Eyes: PERRL Ears, Nose, Mouth, Throat: hearing normal Cardiovascular: regular rate and rhythym Respiratory: no respiratory distress, clear to auscultation Gastrointestinal: soft, non-tender abdomen, No normoactive bowel sounds ( slightly hypoactive) Skin: warm Musculoskeletal: generalized weakness Neurologic: AAOx3 Psychiatric: interacting appropriately ICD10 Worksheet Patient Problems: Problems Problem Status Onset Muscle weakness Active
[2017-08-27] MEDS: DILTIAZEM CD 120 MG CAP PO SCH (08:39)
[2017-08-27] MEDS: APIXABAN 2.5 MG TAB PO SCH (08:39)
[2017-08-27] MEDS: METOPROLOL TARTRATE 100 MG TAB PO SCH (08:39)
[2017-08-27] MEDS: DIGOXIN 125 MCG TAB PO SCH (08:39)
[2017-08-27] MEDS: OXYMETAZOLINE 30 ML NASAL SPRAY EACHNARE SCH (08:40)
[2017-08-27 08:49] VITALS: PULSE 98; RESP 16; O2SAT 93
[2017-08-27] MEDS ORDERED: FUROSEMIDE 20 MG TAB PO SCH (09:00)
[2017-08-27] MEDS ORDERED: POTASSIUM CL 10 MEQ TAB PO ONE (10:26)
--- NOTE | 2017-08-27 11:31 | SOAPPROG ---
SOAP Progress Note Assessment/Plan: Assessment/Plan: 87 Y F dementia, cardiac hx, SBO. s/p ex-laparoscopy c GUILLERMO. Doing well. Eating. Passing stool. Wounds ok. Afebrile. Seen with Dr. Reese. Likely d/c today per medicine. F/u [address] Reese. S: eating fruit. passing some stool. no pain. no n/v. O: gen: alert, pleasant pulm: ctab cor: rrr abd: soft, inc cdi 08/27/17 11:29 Objective: Vital Signs Temp Pulse Resp BP Pulse Ox 36.6 C 98 16 142/80 H 93 08/27/17 07:34 08/27/17 08:48 08/27/17 08:48 08/27/17 07:34 08/27/17 08:48 Laboratory Results 08/25/17 04:21 08/27/17 04:40 08/26/17 08/27/17 08/28/17 05:59 05:59 05:59 Intake Total 550 680 Output Total 102 600 Balance 448 80 ICD10 Worksheet Patient Problems: Problems Problem Status Onset Muscle weakness Active
--- NOTE | 2017-08-27 11:34 | PDIAF ---
- Diagnosis Diagnosis: SBO s/p lysis of adhesions and hernia repari/afib Code Status: Do Not Resuscitate - Medication Management Discharge Medications: Medications to Continue on Transfer Acetaminophen [Tylenol 325mg (*)] 650 mg PO Q6HRS PRN 08/20/17 [Last Taken Unknown] Acetaminophen [Tylenol ES 500 mg (*)] 1,000 mg PO DAILY18 08/20/17 [Last Taken 08/19/17] Apixaban [Eliquis] 2.5 mg PO BID 08/20/17 [Last Taken 08/19/17 21:00] Benzonatate [Tessalon Pearles] 100 mg PO TID PRN 08/20/17 [Last Taken Unknown] Cholestyramine/Sucrose [Questran] 4 gm PO DAILY PRN 08/20/17 [Last Taken Unknown ] Diclofenac Sodium 1% [Voltaren Gel (*)] 1 amy TP DAILY PRN 08/20/17 [Last Taken Unknown] Digoxin [Lanoxin 125 mcg (RX)] 125 mcg PO DAILY 08/20/17 [Last Taken 08/19/17] Diltiazem HCl [Cartia Xt] 120 mg PO DAILY 08/20/17 [Last Taken 08/19/17] Docusate Sodium [Colace 100 MG (*)] 100 mg PO DAILY PRN 08/20/17 [Last Taken Unknown] Donepezil HCl [Aricept 5 MG (*)] 10 mg PO DAILY18 08/20/17 [Last Taken 08/19/17] Furosemide [Lasix 20 MG (*)] 20 mg PO BID 08/20/17 [Last Taken 08/19/17 21:00] Herbals/Supplements -Info Only 1 each PO DAILY 08/20/17 [Last Taken Unknown] Hydrocortisone 1% [Hydrocortisone 1% cream (*)] 1 amy TP DAILY PRN 08/20/17 [ Last Taken Unknown] Lactase [Lactase 3000 Unit (*)] 9,000 unit PO TID 08/20/17 [Last Taken Unknown] Magnesium (Epsom Salt) [Epsom Salt (*)] 1 amy TP DAILY PRN 08/20/17 [Last Taken Unknown] Magnesium Hydroxide [Milk of Magnesia] 30 ml PO DAILY PRN 08/20/17 [Last Taken Unknown] Metoprolol Tartrate [Lopressor 100 mg (*)] 100 mg PO BID 08/20/17 [Last Taken 21:00] Mirabegron [Myrbetriq] 25 mg PO DAILY18 08/20/17 [Last Taken 08/19/17] Omeprazole [Prilosec 20 mg] 20 mg PO DAILY 08/20/17 [Last Taken 08/19/17] Potassium Cl [Klor-Con 20 meq (*)] 20 meq PO DAILY 08/20/17 [Last Taken 08/19/17 ] Propylene Glycol [Systane Balance] 1 drop EACHEYE TID PRN 08/20/17 [Last Taken Unknown] Spironolactone [Aldactone 25 MG (*)] 12.5 mg PO DAILY 08/20/17 [Last Taken 08/19] Trolamine Salicylate [Aspercreme] 1 amy TP DAILY PRN 08/20/17 [Last Taken Unknown] guaiFENesin [Guaifenesin] 15 ml PO Q4HRS PRN 08/20/17 [Last Taken Unknown] Metoprolol Tartrate [Lopressor 25 mg (*)] 25 mg PO BID #60 tab 08/27/17 [Last Taken Unknown] Discharge Medications: Refer to the Discharge Home Medication list for PRN reason. PICC Care - Routine: N/A - Orders Services needed: Physical Therapy, Occupational Therapy Diet Recommendation: no restrictions on diet Diet Texture: Dysphagia 2 - Mechanically Altered - Chopped, Ground Additional: primidone, oxy IR, immodium and simethecone have all been discontinued during your hospital stay. your Lopressor has been 100 mg bid has been increase to 125 mg bid due to fast heart rate/ see Dr Castellanos in regards to this - Labs/Radiology BMP Date: 08/31/17 CBC Date: 08/31/17 - Follow Up Care Current Providers and Referrals: Bronwyn Scott MD [Primary Care Provider] - As per Instructions Charles Reese MD [Medical Doctor] - follow up in 2 weeks Eduardo Castellanos MD [Medical Doctor] -
--- NOTE | 2017-08-27 11:59 | ASMTCMCOM ---
CM Note CM Note Notes: CM met w/ pt and niece for d/c planning. Pt is being discharged today to [facility]. CM spoke w/ Helena at [place] and confirmed d/c. Pts niece will be transporting pt. CM faxed over d/c orders. CM provided OLYA Resendez w/ phone numbe to give report. CM available for changes. Date Signed: 08/27/2017 11:58 AM Electronically Signed By:HEIDY Orellana
--- NOTE | 2017-08-27 12:18 | GDS ---
[f rep st] DISCHARGE SUMMARY DISCHARGE DIAGNOSES: 1. Small-bowel obstruction postoperative day #5 for lysis of adhesions and hernia repair. 2. Abdominal pain. None further. 3. Bio mitral valve replacement. 4. Atrial fibrillation. Likely permanent. 5. Congestive heart failure. 6. Acute kidney injury. 7. Hypertension. 8. Hypoxemia. 9. Congestion. 10. Leukocytosis. 11. Mild dementia. CONSULTATIONS DURING STAY: Dr. Charles Reese. Briefly, the patient is an 87-year-old female, who has a cardiac history including a valve replacement, atrial fibrillation with a pacemaker, who presented with 5 days of progressing abdominal discomfort as well as nausea and vomiting. She had a CT of the abdomen which showed a high-grade bowel obstruction. She was treated with fluids and bowel rest. Her pain persisted. She had a small bowel x-ray performed which showed a small bowel obstruction in the distal ilium. She was seen and evaluated by Dr. Reese and had an exploratory lap and adhesiolysis. She has tolerated surgery well. She will be discharged to the [facility] facility today and further follow up with Dr. Reese in the outpatient setting. HOSPITAL COURSE BY PROBLEM: 1. Small bowel obstruction. She is postop day #5 of lysis and hernia repair. She is eating and drinking well. 2. Abdominal pain. None further. 3. Bio mitral valve replacement. Further follow up with Dr. Castellanos. 4. Atrial fibrillation. Likely permanent. She has been resumed on metoprolol , diltiazem, and digoxin. Her CHADSVASC2 score is at least 4. Her heart rate has been elevated. Her metoprolol has been increased from 100 mg to 125 mg p.o. b.i.d. 5. Congestive heart failure. Lasix has been resumed. A repeat chest x-ray shows improvement. 6. Acute kidney injury, resolved. 7. Hypertension. Improved with increased dose of metoprolol. 8. Hypoxemia, resolved. 9. Congestion, resolved. 10. Leukocytosis, resolved. 11. Mild dementia at her baseline. CONDITION ON DISCHARGE: Stable. Blood pressure is 142/80. Heart rate is 98. Respiratory rate is 16. O2 sats on room air 92%, temperature 36.6 Celsius. MEDICATIONS AT DISCHARGE: Please see the EMR. There have been multiple changes to her home regimen including metoprolol from 100 mg to 125 mg b.i.d. In addition, primidone, Oxy IR, Imodium, and simethicone have all been discontinued during her hospital stay and have not been resumed at this time. Greater than 30 minutes discharging and coordinating care. Copy requested to: Dr. Reese /[id number]/MODL MTDD
--- NOTE | 2017-08-27 16:54 | ASDISCHSUM ---
Discharge Information Plan Status:SNF Medically Cleared to Leave:08/27/2017 Discharge Date:08/27/2017 12:28 PM D/C Disposition:Shelter Facility ADT D/C Disposition:Shelter Facility Projected Discharge Date:08/27/2017 12:00 AM Transportation at D/C:Family Discharge Delay Reason: Follow-Up Date:08/27/2017 12:00 AM Discharge Slot: Final Diagnosis: Placement Information Referral Type:*Jail/SNF Referral ID:[id number] Provider Name:[facility] Address 1:[address] Address 2: City:[place] Selection Factors: State:[place] Patient Contact Information Contact Name:HUE Relationship:Other Address:[address] Work Phone: [facility]:M[place]EL[place] Alternate Phone: State/Zip Code:[place] [address] Email: Financial Information Financial Class: Primary Plan Desc:MEDICARE INPATIENT Primary Plan Number:[id number] Secondary Plan Desc: OUT OF STATE [facility] Secondary Plan Number:[id number] Assessment Information [facility] CM Progress Note CM Note CM Note Notes: Chart reviewed, pt is a 87 y/o female admitted w/ abdominal pain, nausea and vomitting. Pt is a DNR and her brother in law is MDPOA. It is suspected that pt has a small bowel obstruction and surgery has been ordered to consult. No therapies ordered at this time. Anticipates that pt will d/c independent when medically stable. CM available for changes. Date Signed: 08/20/2017 09:44 AM Electronically Signed By:HEIDY Orellana BC CM Progress Note CM Note CM Note Notes: Spoke w/pt and franco Leaa, re; dc poc. Pt declines homecare, would rather continue with services provided through [facility]. CM to notify [facility] when pt discharges, possibly later today, niece to transport pt when ready. Date Signed: 08/23/2017 11:33 AM Electronically Signed By:Vi Munoz RN [facility] AYSHA Progress Note CM Note CM Note Notes: Today therapist let me know that she is recommending [facility] rehab for Pt. Pt. and nidebby Roldan agree with [facility] at [facility] as d/c plan. Denizr called [facility] and eventually spoke w/ Johnna (please don't give this number to family) who work in the rehab section of [facility]. Johnna preparing for d/c tomorrow if indicated. Pt. will go to "[facility]" section of [facility]. Yuli plans to drive Pt. there and both Pt. and Yuli feel good about that plan. Pt. on 3L O2 today. CM to follow for d/c POC. Date Signed: 08/24/2017 04:16 PM Electronically Signed By:Clementina Hagen LCSW [facility] AYSHA Progress Note CM Note CM Note Notes: CM spoke w/ TERRI Evans and OLYA Resendez regarding d/c POC. X-Ray is being ordered. Pt is being discharged today to [facility]. CM notified [facility] of pts discharge. CM met w/ pt and pts niece for dispo planning. Pt is aware that [facility] will only pay for therapy and pt will need to pay for room and board. Pts niece will be transporting pt to [facility]. CM faxed over d/c paperwork. CM gave RN phone number to give report. CM available for changes. Date Signed: 08/26/2017 12:03 PM Electronically Signed By:HEIDY Orellana [facility] AYSHA Progress Note CM Note CM Note Notes: Pts discharge is postponed until she is more medically stable. CM spoke w/ pts dominick and niece will notify [facility]. Transportation will need to be set up w/ [facility] at time of d/c. CM to follow. Date Signed: 08/26/2017 04:02 PM Electronically Signed By:HEIDY Orellana [facility] AYSHA Progress Note AYSHA Note AYSHA Note Notes: CM met w/ pt and niece for d/c planning. Pt is being discharged today to [facility]. CM spoke w/ Helena at [facility] and confirmed d/c. Pts niece will be transporting pt. CM faxed over d/c orders. CM provided OLYA Resendez w/ phone numbe to give report. CM available for changes. Date Signed: 08/27/2017 11:58 AM Electronically Signed By:HEIDY Orellana Intervention Information Intervention Type:*IM-Signed Date of Service:08/27/2017 11:36 AM Patient Type:Inpatient Staff Member:Mandi Carlton Hours: Discipline: Severity: Comment:
== END 2017-08-27 12:28 | DRG 336 ==
LOC: EDUNIT# → F3E 05:35
PROVIDERS: ADMIT Hospitalist; ATTEND Family Medicine
PROC: 0DNN4ZZ Release Sigmoid Colon, Percutaneous Endoscopic Approach (ICD-10-PCS; principal; 2017-08-21 15:45)
DX: K56.52 Intestinal adhesions [bands] with complete obstruction (principal); K46.0 Unspecified abdominal hernia with obstruction, without gangrene; N17.9 Acute kidney failure, unspecified; E87.79 Other fluid overload; I10 Essential (primary) hypertension; I48.1 Persistent atrial fibrillation; Z79.01 Long term (current) use of anticoagulants; Z95.0 Presence of cardiac pacemaker; Z95.3 Presence of xenogenic heart valve; F03.90 Unspecified dementia, unspecified severity, without behavioral disturbance, psychotic disturbance, mood disturbance, and anxiety; G25.0 Essential tremor
CPT/HCPCS: 97110-GP; 97116-GP; 97161-GP; 97165-GO; 97530-GO; 97530-GP; 97535-GO; G8978-GP-CI; G8979-GP-CI; G8987-GO-CJ; G8988-GO-CJ; G8989-GO-CJ; J0694; J1100; J1940; J2060; J2370; J2405; J2704; J3010; J3490; Q9967

== ENCOUNTER 2018-01-20 16:11 | Emergency (ER) | payer OTHER, BC ==
--- NOTE | 2018-01-20 16:54 | EDPHY ---
H & P Time Seen by Provider: 01/20/18 16:18 HPI/ROS: Chief complaint. Fall HPI. 88-year-old female presents emergency department with altered mental status. She apparently fell at her residence 4 days ago and had some back pain. She had an outpatient x-ray which showed an L1 mild anterior compression fracture that was likely old. Apparently though she has a history of dementia as she was felt to be somewhat more confused than normal. She is on blood thinners. She was sent to the emergency department for evaluation of possible trauma to her head and being on blood thinners. Patient is nonverbal to me. Information is all obtained from records sent from her residence. ROS Constitutional. no fever/chills, no weakness Eyes. no problems with vision ENT. no sore throat, no nasal drainage Cardiovascular. no chest pain Respiratory. no shortness of breath, no cough Abdominal. no abdominal pain, no nausea/vomiting, no diarrhea . no problems urinating MS. Low back pain Skin. no rash Lymph. no swollen glands Neuro. Dementia with some confusion Past Medical/Surgical History: Chronic atrial fibrillation, hypertension, dyslipidemia, dementia Social History: Single, nonsmoker, no alcohol Smoking Status: Never smoked Physical Exam: General Appearance: Alert well-developed female nonverbal vital signs stable Eyes: Pupils equal and round no pallor or injection. ENT, Mouth: Mucous membranes are moist. Respiratory: There are no retractions, lungs are clear to auscultation. Cardiovascular: Regular rate and rhythm. Gastrointestinal: Abdomen is soft and nontender, no masses, bowel sounds normal. Neurological: Sensory and motor exams are grossly normal Skin: Warm and dry, no rashes. Musculoskeletal: Tenderness over L1 Extremities symmetrical, full range of motion. Psychiatric: Nonverbal and not oriented Constitutional: Initial Vital Signs Temperature (C) 36.9 C 01/20/18 16:15 Heart Rate 102 H 01/20/18 16:15 Respiratory Rate 16 01/20/18 16:15 Blood Pressure 149/92 H 01/20/18 16:15 O2 Sat (%) 94 01/20/18 16:15 O2 Delivery Mode Room Air Allergies/Adverse Reactions: No Known Allergies Allergy (Unverified 07/23/12 23:49) Home Medications: Medication Instructions Recorded Acetaminophen [Tylenol 325mg (*)] 650 mg PO Q6HRS PRN 08/20/17 Acetaminophen [Tylenol ES 500 mg 1,000 mg PO DAILY18 08/20/17 (*)] Apixaban [Eliquis] 2.5 mg PO BID 08/20/17 Benzonatate [Tessalon Pearles] 100 mg PO TID PRN 08/20/17 Cholestyramine/Sucrose [Questran] 4 gm PO DAILY PRN 08/20/17 Diclofenac Sodium 1% [Voltaren Gel 1 amy TP DAILY PRN 08/20/17 (*)] Digoxin [Lanoxin 125 mcg (RX)] 125 mcg PO DAILY 08/20/17 Diltiazem HCl [Cartia Xt] 120 mg PO DAILY 08/20/17 Docusate Sodium [Colace 100 MG (*)] 100 mg PO DAILY PRN 08/20/17 Donepezil HCl [Aricept 5 MG (*)] 10 mg PO DAILY18 08/20/17 Furosemide [Lasix 20 MG (*)] 20 mg PO BID 08/20/17 Herbals/Supplements -Info Only 1 each PO DAILY 08/20/17 Hydrocortisone 1% [Hydrocortisone 1 amy TP DAILY PRN 08/20/17 1% cream (*)] Lactase [Lactase 3000 Unit (*)] 9,000 unit PO TID 08/20/17 Magnesium (Epsom Salt) [Epsom Salt 1 amy TP DAILY PRN 08/20/17 (*)] Magnesium Hydroxide [Milk of 30 ml PO DAILY PRN 08/20/17 Magnesia] Metoprolol Tartrate [Lopressor 100 100 mg PO BID 08/20/17 mg (*)] Mirabegron [Myrbetriq] 25 mg PO DAILY18 08/20/17 Omeprazole [Prilosec 20 mg] 20 mg PO DAILY 08/20/17 Potassium Cl [Klor-Con 20 meq (*)] 20 meq PO DAILY 08/20/17 Propylene Glycol [Systane Balance] 1 drop EACHEYE TID PRN 08/20/17 Spironolactone [Aldactone 25 MG 12.5 mg PO DAILY 08/20/17 (*)] Trolamine Salicylate [Aspercreme] 1 amy TP DAILY PRN 08/20/17 guaiFENesin [Guaifenesin] 15 ml PO Q4HRS PRN 08/20/17 Metoprolol Tartrate [Lopressor 25 25 mg PO BID #60 tab 08/27/17 mg (*)] Namenda 5 mg (*) 01/20/18 Primidone 01/20/18 Medical Decision Making - Diagnostics Imaging Results: Imaging Impressions Head CT 01/20/18 16:46 Impression: 1. No acute intracranial findings. 2. Diffuse cerebral atrophy with periventricular and subcortical low attenuation consistent with chronic microvascular ischemic gliosis. 3. Right maxillary sinusitis. Findings discussed with Dr. Osorio Jung on 01/20/2018 at 17:25. Noncontrast head CT shows atrophy but no evidence for acute intracranial bleeding ED Course/Re-evaluation: Re-evaluation patient is stable and unchanged. There is no family here and no caregiver to give further history or give report. 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 History of dementia. No evidence for intracranial injury. No evidence for urinary tract infection. - Data Points Laboratory Results: 01/20/18 18:40 Urine Color YELLOW Urine Appearance HAZY Urine pH 5.0 (5.0-7.5) Ur Specific [place] 1.018 (1.002-1.030) Urine Protein NEGATIVE (NEGATIVE) Urine Ketones 1+ H (NEGATIVE) Urine Blood NEGATIVE (NEGATIVE) Urine Nitrate NEGATIVE (NEGATIVE) Urine Bilirubin NEGATIVE (NEGATIVE) Urine Urobilinogen NEGATIVE EU EU (0.2-1.0) Ur Leukocyte Esterase NEGATIVE (NEGATIVE) Urine RBC 1-3 /hpf /hpf (0-3) Urine WBC 1-3 /hpf /hpf (0-3) Ur Epithelial Cells TRACE /lpf /lpf (NONE-1+) Hyaline Casts 5-15 /lpf /lpf (0-1) Urine Mucus TRACE /lpf /lpf (NONE-1+) Urine Glucose NEGATIVE (NEGATIVE) Departure - Departure Disposition: Home, Routine, Self-Care Clinical Impression: Fall Qualifiers: Encounter type: subsequent encounter Qualified Code(s): W19.XXXD - Unspecified fall, subsequent encounter Condition: Fair Instructions: Fall Prevention for Older Adults (ED) Additional Instructions: Continue regular medications. The head CT is nonacute without evidence of any bleeding or injury. Return for worsening symptoms. Recheck in 1-2 days for any continuing symptoms Referrals: Patient,NotPresent [Unknown] - As per Instructions
[2018-01-20 20:05] VITALS: BP 109/58; PULSE 86; RESP 18; TEMP 98.2; O2SAT 92
== END 2018-01-20 20:04 | disposition home or self-care (01) ==
LOC: EDUNIT#
DX: S39.92XA Unspecified injury of lower back, initial encounter (principal); I10 Essential (primary) hypertension; W18.39XA Other fall on same level, initial encounter

== ENCOUNTER 2018-04-09 18:27 | Observation (INO) | payer OTHER, BC ==
[2018-04-09] MEDS ORDERED: NS 500 ML IV ONE (18:32)
--- NOTE | 2018-04-09 18:42 | EDPHY ---
H & P Time Seen by Provider: 04/09/18 18:32 HPI/ROS: HPI Altered mental status, fall. 88-year-old female by ambulance from the [facility]. The patient reports that she was sitting on the edge of her bed and slipped off the edge gently falling to the ground and landing on her buttocks. She denies that she hit her head. Staff state that she did hit her head. She does not have any complaints but staff state that she has been more confused. They reported to EMS however that she has been declining steadily over the last month in terms of her cognitive function. She currently gets around in a wheelchair. She has regressed from a walker to this over the last month as well. She is on anticoagulation, Eliquis for atrial fibrillation. ROS: Constitutional: No fever, no chills. As above. Eyes: No discharge. No changes in vision. ENT: No sore throat. No nasal congestion or rhinorrhea. Respiratory: No cough. No shortness of breath. Cardiac: No chest pain, no new palpitations. Gastrointestinal: No abdominal pain, no vomiting, no diarrhea. Genitourinary: No hematuria. No dysuria or increased frequency with urination. Musculoskeletal: No back pain. No neck pain. No myalgias or arthralgias. Skin: She had a rash which has been causing pruritus for several weeks. She has an appointment to see a bingo manager later next week. Neurological: No headache. No focal weakness or altered sensation. Past medical history: Anxiety disorder, sick sinus syndrome, rheumatic mitral valve disease, pulmonary hypertension, essential tremor, peripheral vascular disease, history of frequent urinary tract infections, coronary artery disease, atrial fibrillation, on Eliquis on metoprolol. Patient has DNR paperwork with her. Social history: Nonsmoker. Here by herself. As above. Unknown access to alcohol. Physical Exam: General Appearance: Alert, no distress. This patient is responding to questions appropriately and in full sentences. This patient appears well- hydrated and well-nourished. Head: Normocephalic atraumatic. Eyes: Pupils are slightly unequal with the right pupil being slightly larger but equally reactive to the left pupil. No lid edema, erythema or injection. No nystagmus. No photophobia. ENT, Mouth: Mucous membranes are moist. The pharyngeal tissues are unremarkable. No edema or swelling. No asymmetry suggestive of abscess. No erythema or exudates. No tongue lacerations or abrasions. Respiratory: There are no retractions, lungs are clear to auscultation with good air movement bilaterally. Cardiovascular: Irregular irregular rhythm. Borderline tachycardia. No murmur appreciated. Gastrointestinal: Abdomen is soft and nontender, no masses, bowel sounds normal. No focal tenderness at McBurney's point. No Jacobs sign. Neurological: Motor sensory function is grossly intact. Cranial nerves are normal. Cerebellar function is intact. Skin: Warm and dry, no rashes. Musculoskeletal: Neck is supple and nontender. No midline cervical, thoracic, lumbar tenderness on palpation. Extremities are symmetrical. All joints range without pain or impingement. Psychiatric: No agitation. No depression. Database: EKG: EKG time is. 6:58 p.m.; EKG shows a narrow complex atrial flutter with variable block with a ventricular rate average of 122. Low voltage noted in the frontal leads. The QRS, QT intervals are within normal limits. There are no ST -T wave changes indicative of ischemic or injury pattern. No evidence of right heart strain. Interpreted by me. Imaging: CT scan of head without contrast: Atrophy, age-related changes. Procedures: Emergency department course: Vital signs reviewed. She is hypertensive. Vital signs otherwise normal. She is afebrile. EKG obtained and reviewed by myself. She will be given IV normal saline, 250 cc to 500 cc over the next hour. 8:25 p.m., patient has returned from CT. Results were discussed with her. Need for admission discussed with her. classroom monitor shows a narrow complex irregular rhythm, likely atrial flutter with variable block. She is running 115 -120 currently. She will be given IV Lopressor 5 mg doses up to x3 for rate control followed by a PO Dose. She takes 100 mg of this twice daily for rate control. 8:30 p.m., spoke with Dr. Loren Stahl of the hospitalist service. Case discussed in detail with her. She accepts this patient for admission. 9:15 p.m., the patient has received 3 doses of IV Lopressor at 5 mg per dose. Her rate has come down to about 100. She was given 50 mg of oral Lopressor. The patient's remaining emergency department course under my care has been uneventful. She was admitted to telemetry in stable condition. Differential Diagnosis: The differential diagnosis on this patient includes but is not limited to urinary tract infection, hyponatremia, intracranial mass/bleed, alcohol intoxication, medication reaction. This represents a partial list of diagnoses considered. These considerations are based on history, physical exam, past history, reassessment and diagnostic testing. Smoking Status: Never smoked Constitutional: Initial Vital Signs Temperature (C) 36.3 C 04/09/18 18:27 Heart Rate 114 H 04/09/18 18:27 Respiratory Rate 16 04/09/18 18:27 Blood Pressure 119/83 H 04/09/18 18:27 O2 Sat (%) 95 04/09/18 18:27 O2 Delivery Mode Nasal Cannula O2 (L/minute) 2 Allergies/Adverse Reactions: No Known Allergies Allergy (Unverified 04/09/18 18:42) Home Medications: Medication Instructions Recorded Acetaminophen [Tylenol ES 500 mg 1,000 mg PO DAILY18 08/20/17 (*)] Apixaban [Eliquis] 2.5 mg PO BID 08/20/17 Diltiazem HCl [Cartia Xt] 120 mg PO DAILY 08/20/17 Donepezil HCl [Aricept 5 MG (*)] 10 mg PO DAILY18 08/20/17 Furosemide [Lasix 20 MG (*)] 20 mg PO BID 08/20/17 Lactase [Lactase 3000 Unit (*)] 9,000 unit PO TID 08/20/17 Magnesium Hydroxide [Milk of 30 ml PO DAILY PRN 08/20/17 Magnesia] Omeprazole [Prilosec 20 mg] 20 mg PO DAILY 08/20/17 Potassium Cl [Klor-Con 20 meq (*)] 20 meq PO DAILY 08/20/17 Trolamine Salicylate [Aspercreme] 1 amy TP DAILY PRN 08/20/17 Bisacodyl [Magic Bullet 10 mg] 10 mg [place] DAILY PRN 04/09/18 Cetirizine [ZyrTEC 10 mg (*)] 10 mg PO DAILY 04/09/18 Cholecalciferol Vit D3 [Vitamin D3 50,000 unit PO Q30D 04/09/18 (*)] Cholestyramine/Sucrose [Questran 4 gm PO DAILY PRN 04/09/18 (OTC)] Diclofenac Sodium 1% [Voltaren Gel 1 amy TP QID PRN 04/09/18 (*)] Fluocinonide 0.05% [Lidex 0.05% 1 amy TP BID PRN 04/09/18 Cream] Fluticasone Nasal [Flonase Nasal 1 sprays NASAL DAILY PRN 04/09/18 [place] (RX)] Memantine HCl [Namenda 5 mg (*)] 5 mg PO HS 04/09/18 Metoprolol Tartrate 75 mg PO BID 04/09/18 Polyethylene Glycol 3350 [Miralax 17 gm PO DAILY PRN 04/09/18 17 gm (*)] Primidone [Primidone 250mg (*)] 375 mg PO BID 04/09/18 Propylene Glycol [Systane Balance] 1 drop EACHEYE TID 04/09/18 Sennosides/Docusate Sodium 1 each PO BID 04/09/18 [Senna-S Tablet] Spironolactone [Aldactone 25 MG 25 mg PO DAILY 04/09/18 (*)] hydrOXYzine HCL [hydrOXYzine HCL 25 mg PO Q6 PRN 04/09/18 (RX)] Medical Decision Making - Diagnostics Imaging Results: Imaging Impressions Head CT 04/09/18 18:33 Impression: Moderately advanced senescent features, with no acute hemorrhage or mass effect identified on this unenhanced CT evaluation. If there is further clinical concern regarding the patient's symptoms, MR imaging is suggested, if not otherwise contraindicated. Findings were discussed with yTesha Ureña MD at 20:21, on 04/09/2018. - Data Points Laboratory Results: Laboratory Results 04/09/18 18:40 04/09/18 18:40 04/09/18 04/09/18 04/09/18 19:55 18:40 18:40 WBC RBC Hgb Hct MCV MCH MCHC RDW Plt Count MPV Neut % (Auto) Lymph % (Auto) [place] % (Auto) Eos % (Auto) Baso % (Auto) Nucleat RBC Rel Count Absolute Neuts (auto) Absolute Lymphs (auto) Absolute Monos (auto) Absolute Eos (auto) Absolute Basos (auto) Absolute Nucleated RBC Immature Gran % Immature Gran # PT 14.5 SEC SEC (12.0-15.0) INR 1.11 (0.83-1.16) APTT 33.3 SEC SEC (23.0-38.0) Sodium 136 mEq/L mEq/L (135-145) Potassium 5.2 mEq/L H mEq/L (3.3-5.0) Chloride 97 mEq/L mEq/L (97-110) Carbon Dioxide 29 mEq/l mEq/l (22-31) Anion Gap 10 mEq/L mEq/L (8-16) BUN 17 mg/dL mg/dL (7-23) Creatinine 1.0 mg/dL mg/dL (0.6-1.0) Estimated GFR 52 Glucose 76 mg/dL mg/dL (70-100) Calcium 8.8 mg/dL mg/dL (8.5-10.4) Total Bilirubin 0.7 mg/dL mg/dL (0.1-1.4) Conjugated Bilirubin 0.6 mg/dL H mg/dL (0.0-0.5) Unconjugated Bilirubin 0.1 mg/dL mg/dL (0.0-1.1) AST 40 IU/L IU/L (14-46) ALT 50 IU/L IU/L (9-52) Alkaline Phosphatase 173 IU/L H IU/L (38-126) Troponin I < 0.012 ng/mL ng/mL (0.000-0.034) Total Protein 6.1 g/dL L g/dL (6.3-8.2) Albumin 3.6 g/dL g/dL (3.5-5.0) TSH 0.991 uIU/mL uIU/mL (0.465-4.680) Urine Color PALE YELLOW Urine Appearance CLEAR Urine pH 6.0 (5.0-7.5) Ur Specific [place] 1.005 (1.002-1.030) Urine Protein NEGATIVE (NEGATIVE) Urine Ketones NEGATIVE (NEGATIVE) Urine Blood NEGATIVE (NEGATIVE) Urine Nitrate NEGATIVE (NEGATIVE) Urine Bilirubin NEGATIVE (NEGATIVE) Urine Urobilinogen NEGATIVE EU EU (0.2-1.0) Ur Leukocyte Esterase NEGATIVE (NEGATIVE) Urine RBC 1-3 /hpf /hpf (0-3) Urine WBC 1-3 /hpf /hpf (0-3) Ur Epithelial Cells NONE SEEN /lpf /lpf (NONE-1+) Urine Mucus TRACE /lpf /lpf (NONE-1+) Urine Glucose NEGATIVE (NEGATIVE) Salicylates < 1.0 mg/dL L mg/dL (2.0-20.0) Urine Opiates Screen NEGATIVE (NEGATIVE) Urine Barbiturates NON-NEGATIVE H (NEGATIVE) Ur Phencyclidine Scrn NEGATIVE (NEGATIVE) Ur Amphetamine Screen NEGATIVE (NEGATIVE) U Benzodiazepines Scrn NEGATIVE (NEGATIVE) Urine Cocaine Screen NEGATIVE (NEGATIVE) U Marijuana (THC) Screen NEGATIVE (NEGATIVE) Ethyl Alcohol < 10 mg/dL mg/dL (0-10) 04/09/18 18:40 WBC 4.61 10^3/uL 10^3/uL (3.80-9.50) RBC 3.50 10^6/uL L 10^6/uL (4.18-5.33) Hgb 12.5 g/dL L g/dL (12.6-16.3) Hct 37.9 % L % (38.0-47.0) MCV 108.3 fL H fL (81.5-99.8) MCH 35.7 pg H pg (27.9-34.1) MCHC 33.0 g/dL g/dL (32.4-36.7) RDW 15.2 % % (11.5-15.2) Plt Count 176 10^3/uL 10^3/uL (150-400) MPV 11.7 fL fL (8.7-11.7) Neut % (Auto) 51.0 % % (39.3-74.2) Lymph % (Auto) 23.6 % % (15.0-45.0) [place] % (Auto) 11.1 % % (4.5-13.0) Eos % (Auto) 13.2 % H % (0.6-7.6) Baso % (Auto) 0.9 % % (0.3-1.7) Nucleat RBC Rel Count 0.0 % % (0.0-0.2) Absolute Neuts (auto) 2.35 10^3/uL 10^3/uL (1.70-6.50) Absolute Lymphs (auto) 1.09 10^3/uL 10^3/uL (1.00-3.00) Absolute Monos (auto) 0.51 10^3/uL 10^3/uL (0.30-0.80) Absolute Eos (auto) 0.61 10^3/uL H 10^3/uL (0.03-0.40) Absolute Basos (auto) 0.04 10^3/uL 10^3/uL (0.02-0.10) Absolute Nucleated RBC 0.00 10^3/uL 10^3/uL (0-0.01) Immature Gran % 0.2 % % (0.0-1.1) Immature Gran # 0.01 10^3/uL 10^3/uL (0.00-0.10) PT INR APTT Sodium Potassium Chloride Carbon Dioxide Anion Gap BUN Creatinine Estimated GFR Glucose Calcium Total Bilirubin Conjugated Bilirubin Unconjugated Bilirubin AST ALT Alkaline Phosphatase Troponin I Total Protein Albumin TSH Urine Color Urine Appearance Urine pH Ur Specific [place] Urine Protein Urine Ketones Urine Blood Urine Nitrate Urine Bilirubin Urine Urobilinogen Ur Leukocyte Esterase Urine RBC Urine WBC Ur Epithelial Cells Urine Mucus Urine Glucose Salicylates Urine Opiates Screen Urine Barbiturates Ur Phencyclidine Scrn Ur Amphetamine Screen U Benzodiazepines Scrn Urine Cocaine Screen U Marijuana (THC) Screen Ethyl Alcohol Medications Given: Metoprolol Tartrate (Lopressor) 50 mg PO ONCE ONE Stop: 04/09/18 21:11 Last Admin: 04/09/18 21:12 Dose: 50 mg Discontinued Medications Sodium Chloride (Ns) 500 mls @ 0 mls/hr IV ONCE ONE; Wide Open PRN Reason: Protocol Stop: 04/09/18 18:33 Last Admin: 04/09/18 19:01 Dose: 500 mls Metoprolol Tartrate (Lopressor Injection) 5 mg IVP EDNOW ONE Stop: 04/09/18 20:28 Last Admin: 04/09/18 20:40 Dose: 5 mg Metoprolol Tartrate (Lopressor Injection) 5 mg IVP ONCE ONE Stop: 04/09/18 20:53 Last Admin: 04/09/18 20:46 Dose: 5 mg Metoprolol Tartrate (Lopressor Injection) 5 mg IVP ONCE ONE Stop: 04/09/18 20:58 Last Admin: 04/09/18 20:53 Dose: 5 mg Departure - Departure Disposition: [facility] Acute Clinical Impression: Altered mental status, Atrial flutter with rapid ventricular response
[2018-04-09 18:56] LABS: PLATELET COUNT 176 10^3/uL (150-400)
--- NOTE | 2018-04-09 19:00 | CPEKG ---
Heart Rate: 122 RR Interval: 492 QRSD Interval: 94 QT Interval: 316 QTC Interval: 451 QRS Phelps: 47 T Wave Phelps: -72 EKG Severity - ABNORMAL ECG - EKG Impression: ATRIAL FLUTTER, A-RATE 288 EKG Impression: LOW VOLTAGE IN FRONTAL LEADS EKG Impression: REPOLARIZATION ABNORMALITY, PROB RATE RELATED Electronically Signed By: Tyesha Ureña 09-Apr-2018 22:28:18
[2018-04-09 19:03] LABS: INR 1.11 (0.83-1.16); PROTIME(PATIENT) 14.5 SEC (12.0-15.0)
[2018-04-09] MEDS ORDERED: METOPROLOL TARTRATE 5 MG/5 ML INJ IVP ONE ×4 (20:27→21:30)
[2018-04-09] MEDS ORDERED: METOPROLOL TARTRATE 5 MG/5 ML INJ ONE (20:49)
[2018-04-09] MEDS ORDERED: METOPROLOL TARTRATE 25 MG TAB ONE (21:09)
[2018-04-09] MEDS ORDERED: METOPROLOL TARTRATE 50 MG TAB PO ONE ×2 (21:10→22:00)
[2018-04-09] MEDS ORDERED: ACETAMINOPHEN 325 MG TAB PO PRN (22:29)
[2018-04-09] MEDS ORDERED: ONDANSETRON 4 MG/2 ML VIAL IVP PRN (22:29)
[2018-04-09] MEDS ORDERED: NS 1,000 ML IV SCH (22:30)
--- NOTE | 2018-04-09 22:58 | PDGENHP ---
History and Physical - Chief Complaint Altered mental status, fall - History of Present Illness Source - patient provides history is a fair historian. EMR was reviewed and case discussed with accepting hospitalist provider. HPI - pleasant 88-year-old female with past medical history significant for atrial fibrillation, sick sinus syndrome, HTN, dementia, mitral valve replacement on Eliquis and history of progressive weakness who presents emergency department today following a fall at her assisted living facility at [facility]. Patient insists that she slid off the bed and she was unable to get her footing. She thinks that she her gown slipped off of her quelled and she was not able to stop herself from sliding down. She denies that she hit her head. When asked how she fell she was unsure if she had fallen on her bottom or on her knees. Staff had reported to ED provider that time patient had indeed hit her head but unknown if this was a witnessed fall. Patient does have a history of intermittent falls in the past. She has had progressive weakness where she was previously able to ambulate with a walker is now primarily wheelchair dependent. Staff had also noted progressive cognitive decline in addition to decreasing generalized strength over the past month. Patient denies any fevers or chills. No nausea vomiting. No chest pain palpitations shortness of breath or lightheadedness. Patient since arrival to the floor has developed a little bit of clearing of her throat with increasing conversation. She denies any dysphagia or coughing after meals. History Information - Allergies/Home Medication List Allergies/Adverse Reactions: No Known Allergies Allergy (Unverified 04/09/18 18:42) Home Medications: Acetaminophen [Tylenol ES 500 mg (*)] 1,000 mg PO TID 08/20/17 [Last Taken 08/19] Apixaban [Eliquis] 2.5 mg PO BID 08/20/17 [Last Taken 08/19/17 21:00] Diltiazem HCl [Cartia Xt] 120 mg PO DAILY 08/20/17 [Last Taken 08/19/17] Donepezil HCl [Aricept 5 MG (*)] 10 mg PO DAILY18 08/20/17 [Last Taken 08/19/17] Furosemide [Lasix 20 MG (*)] 20 mg PO BID 08/20/17 [Last Taken 08/19/17 21:00] Lactase [Lactase 3000 Unit (*)] 9,000 unit PO TID 08/20/17 [Last Taken Unknown] Magnesium Hydroxide [Milk of Magnesia] 30 ml PO DAILY PRN 08/20/17 [Last Taken Unknown] Omeprazole [Prilosec 20 mg] 20 mg PO Q2D 08/20/17 [Last Taken 08/19/17] Potassium Cl [Klor-Con 20 meq (*)] 20 meq PO DAILY 08/20/17 [Last Taken 08/19/17 ] Trolamine Salicylate [Aspercreme] 1 amy TP DAILY PRN 08/20/17 [Last Taken Unknown] Bisacodyl [Magic Bullet 10 mg] 10 mg [place] DAILY PRN 04/09/18 [Last Taken Unknown] Cetirizine [ZyrTEC 10 mg (*)] 10 mg PO DAILY 04/09/18 [Last Taken Unknown] Cholecalciferol Vit D3 [Vitamin D3 (*)] 50,000 unit PO Q30D 04/09/18 [Last Taken Unknown] Cholestyramine/Sucrose [Questran (OTC)] 4 gm PO DAILY PRN 04/09/18 [Last Taken Unknown] Diclofenac Sodium 1% [Voltaren Gel (*)] 1 amy TP QID PRN 04/09/18 [Last Taken Unknown] Fluocinonide 0.05% [Lidex 0.05% Cream] 1 amy TP BID PRN 04/09/18 [Last Taken Unknown] Fluticasone Nasal [Flonase Nasal Benton (RX)] 1 sprays NASAL DAILY PRN 04/09/18 [ Last Taken Unknown] Memantine HCl [Namenda 5 mg (*)] 5 mg PO HS 04/09/18 [Last Taken Unknown] Metoprolol Tartrate 75 mg PO BID 04/09/18 [Last Taken Unknown] Polyethylene Glycol 3350 [Miralax 17 gm (*)] 17 gm PO DAILY PRN 04/09/18 [Last Taken Unknown] Primidone [Primidone 250mg (*)] 375 mg PO BID 04/09/18 [Last Taken Unknown] Propylene Glycol [Systane Balance] 1 drop EACHEYE TID 04/09/18 [Last Taken Unknown] Sennosides/Docusate Sodium [Senna-S Tablet] 1 each PO BID 04/09/18 [Last Taken Unknown] Spironolactone [Aldactone 25 MG (*)] 25 mg PO DAILY 04/09/18 [Last Taken Unknown ] hydrOXYzine HCL [hydrOXYzine HCL (RX)] 25 mg PO Q6 PRN 04/09/18 [Last Taken Unknown] predniSONE [Prednisone] 10 mg PO DAILY 04/09/18 [Last Taken Unknown] I have personally reviewed and updated: family history, medical history, social history, surgical history - Past Medical History atrial fibrillation, dementia, hypertension (pacemaker) Additional medical history: Atrial fibrillation/flutter, sick sinus syndrome, history of sinus arrest, benign essential hypertension, familial tremor, dementia, pulmonary hypertension, PVD, history of UTIs, CAD, SBO manage conservatively, rheumatic heart disease status post mitral valve replacement ( porcine), chronic anticoagulation with Eliquis, remote history of shingles - Surgical History Additional surgical history: Mitral valve replacement (porcine donor). Pacer - Family History Additional family history: Negative for a arrhythmia - Social History Smoking Status: Never smoked Alcohol Use: None Drug Use: None Additional social history: Patient resides at [facility]. Recently patient with needs for wheelchair mobilization he was previously able to use a walker. Has had cognitive decline reported by NURSING HOME staff. Cor status-DNR DNI per accompanying MOST form. Review of Systems Review of Systems: ROS: 10pt was reviewed & negative except for what was stated in HPI & below Constitutional: Reports: other (Decreased appetite). Denies: chills, fever EENMT: Denies: blurred vision, nose congestion, sore throat Cardiac: Denies: chest pain, edema, lightheadedness, palpitations, syncope Respiratory: Denies: cough, shortness of breath Gastrointestinal: Reports: constipation. Denies: vomitting, diarrhea, nausea Genitourinary: Denies: dysuria, hematuria Muscolosketal: Denies: joint pain, muscle pain Skin: Reports: rash, other (Chronic diffuse itching and rash) Neurological: Reports: weakness (Generalized). Denies: anxiety, depressed, numbness, tingling Hematologic/Lymphatic: Denies: anemia, easy bruising Physical Exam Physical Exam: Selected Entries 04/09/18 18:27 Blood Pressure Automatic Method Heart Rate 114 H Respiratory 16 Rate O2 Sat (%) 95 Temperature (C) 36.3 C Blood Pressure 119/83 H Mean Arterial 95 Pressure (MAP) O2 (L/minute) 2 O2 Delivery Nasal Cannula Mode Temperature Oral Source Temp Pulse Resp BP Pulse Ox 35.9 C L 115 H 22 H 122/85 H 95 04/09/18 21:46 04/09/18 21:46 04/09/18 21:46 04/09/18 21:46 04/09/18 21:46 O2 (L/minute) 2 Constitutional: no apparent distress, chronically ill appearing, other (NAD. Pleasant frail elderly female is lying quietly in bed. Awake and interactive.) Eyes: PERRL, anicteric sclera, EOMI, No scleral injection Ears, Nose, Mouth, Throat: moist mucous membranes, no oral mucosal ulcers, No poor dentition Cardiovascular: irregularly irregular, tachycardia, edema (1+ bilateral lower extremity edema.), other (Well-healed sternal surgical scar.), No systolic murmur Peripheral Pulses: 1+: dorsalis-pedis (R), dorsalis-pedis (L) Respiratory: no respiratory distress, no rales or rhonchi, clear to auscultation , No respiratory distress Gastrointestinal: normoactive bowel sounds, soft, non-tender abdomen, no palpable masses, other (Soft but full abdomen.), No distension Genitourinary: no bladder tenderness, No ambriz in urethra Skin: warm, normal color, No rash Musculoskeletal: generalized weakness (Moves all extremities and symmetric. Strength overall 4/5), other (Patient able to sit up with minimal assistance.), No pain with ROM Neurologic: sensation intact bilaterally, other (Grossly nonfocal, patient oriented to person and place.), No numbness, No facial droop Psychiatric: interacting appropriately, not encephalopathic, thought process linear, anxious, No agitated Lab Data & Imaging Review 04/09/18 18:40 04/09/18 18:40 WBC 4.61 10^3/uL (3.80-9.50) 04/09/18 18:40 RBC 3.50 10^6/uL (4.18-5.33) L 04/09/18 18:40 Hgb 12.5 g/dL (12.6-16.3) L 04/09/18 18:40 Hct 37.9 % (38.0-47.0) L 04/09/18 18:40 MCV 108.3 fL (81.5-99.8) H 04/09/18 18:40 MCH 35.7 pg (27.9-34.1) H 04/09/18 18:40 MCHC 33.0 g/dL (32.4-36.7) 04/09/18 18:40 RDW 15.2 % (11.5-15.2) 04/09/18 18:40 Plt Count 176 10^3/uL (150-400) 04/09/18 18:40 MPV 11.7 fL (8.7-11.7) 04/09/18 18:40 Neut % (Auto) 51.0 % (39.3-74.2) 04/09/18 18:40 Lymph % (Auto) 23.6 % (15.0-45.0) 04/09/18 18:40 Latimer % (Auto) 11.1 % (4.5-13.0) 04/09/18 18:40 Eos % (Auto) 13.2 % (0.6-7.6) H 04/09/18 18:40 Baso % (Auto) 0.9 % (0.3-1.7) 04/09/18 18:40 Nucleat RBC Rel Count 0.0 % (0.0-0.2) 04/09/18 18:40 Absolute Neuts (auto) 2.35 10^3/uL (1.70-6.50) 04/09/18 18:40 Absolute Lymphs (auto) 1.09 10^3/uL (1.00-3.00) 04/09/18 18:40 Absolute Monos (auto) 0.51 10^3/uL (0.30-0.80) 04/09/18 18:40 Absolute Eos (auto) 0.61 10^3/uL (0.03-0.40) H 04/09/18 18:40 Absolute Basos (auto) 0.04 10^3/uL (0.02-0.10) 04/09/18 18:40 Absolute Nucleated RBC 0.00 10^3/uL (0-0.01) 04/09/18 18:40 Immature Gran % 0.2 % (0.0-1.1) 04/09/18 18:40 Immature Gran # 0.01 10^3/uL (0.00-0.10) 04/09/18 18:40 PT 14.5 SEC (12.0-15.0) 04/09/18 18:40 INR 1.11 (0.83-1.16) 04/09/18 18:40 APTT 33.3 SEC (23.0-38.0) 04/09/18 18:40 Sodium 136 mEq/L (135-145) 04/09/18 18:40 Potassium 5.2 mEq/L (3.3-5.0) H 04/09/18 18:40 Chloride 97 mEq/L (97-110) 04/09/18 18:40 Carbon Dioxide 29 mEq/l (22-31) 04/09/18 18:40 Anion Gap 10 mEq/L (8-16) 04/09/18 18:40 BUN 17 mg/dL (7-23) 04/09/18 18:40 Creatinine 1.0 mg/dL (0.6-1.0) 04/09/18 18:40 Estimated GFR 52 04/09/18 18:40 Glucose 76 mg/dL (70-100) 04/09/18 18:40 Calcium 8.8 mg/dL (8.5-10.4) 04/09/18 18:40 Total Bilirubin 0.7 mg/dL (0.1-1.4) 04/09/18 18:40 Conjugated Bilirubin 0.6 mg/dL (0.0-0.5) H 04/09/18 18:40 Unconjugated Bilirubin 0.1 mg/dL (0.0-1.1) 04/09/18 18:40 AST 40 IU/L (14-46) 04/09/18 18:40 ALT 50 IU/L (9-52) 04/09/18 18:40 Alkaline Phosphatase 173 IU/L (38-126) H 04/09/18 18:40 Troponin I < 0.012 ng/mL (0.000-0.034) 04/09/18 18:40 Total Protein 6.1 g/dL (6.3-8.2) L 04/09/18 18:40 Albumin 3.6 g/dL (3.5-5.0) 05/16/18 18:40 TSH 0.991 uIU/mL (0.465-4.680) 04/09/18 18:40 Urine Color PALE YELLOW 04/09/18 19:55 Urine Appearance CLEAR 04/09/18 19:55 Urine pH 6.0 (5.0-7.5) 04/09/18 19:55 Ur Specific Wagoner 1.005 (1.002-1.030) 04/09/18 19:55 Urine Protein NEGATIVE (NEGATIVE) 04/09/18 19:55 Urine Ketones NEGATIVE (NEGATIVE) 04/09/18 19:55 Urine Blood NEGATIVE (NEGATIVE) 04/09/18 19:55 Urine Nitrate NEGATIVE (NEGATIVE) 04/09/18 19:55 Urine Bilirubin NEGATIVE (NEGATIVE) 04/09/18 19:55 Urine Urobilinogen NEGATIVE EU (0.2-1.0) 04/09/18 19:55 Ur Leukocyte Esterase NEGATIVE (NEGATIVE) 04/09/18 19:55 Urine RBC 1-3 /hpf (0-3) 04/09/18 19:55 Urine WBC 1-3 /hpf (0-3) 04/09/18 19:55 Ur Epithelial Cells NONE SEEN /lpf (NONE-1+) 04/09/18 19:55 Urine Mucus TRACE /lpf (NONE-1+) 04/09/18 19:55 Urine Glucose NEGATIVE (NEGATIVE) 04/09/18 19:55 Salicylates < 1.0 mg/dL (2.0-20.0) L 04/09/18 18:40 Urine Opiates Screen NEGATIVE (NEGATIVE) 04/09/18 19:55 Urine Barbiturates NON-NEGATIVE (NEGATIVE) H 04/09/18 19:55 Ur Phencyclidine Scrn NEGATIVE (NEGATIVE) 04/09/18 19:55 Ur Amphetamine Screen NEGATIVE (NEGATIVE) 04/09/18 19:55 U Benzodiazepines Scrn NEGATIVE (NEGATIVE) 04/09/18 19:55 Urine Cocaine Screen NEGATIVE (NEGATIVE) 04/09/18 19:55 U Marijuana (THC) Screen NEGATIVE (NEGATIVE) 04/09/18 19:55 Ethyl Alcohol < 10 mg/dL (0-10) 04/09/18 18:40 EKG additional interpertation: A flutter with V rate in the 120s. Diffuse ST depression likely related to rate and report changes. Assessment & Plan Assessment: Atrial flutter with rapid ventricular response (Acute) - patient is status post 3 doses of Lopressor in the emergency department. She subsequently received oral dose of her home on metoprolol in addition. Her heart rate has come down into the 1 100s. Will plan to resume patient's daily medications including metoprolol and Cardizem. TSH within normal limits. Continue Eliquis. Per EMR review patient appears to be followed by Dr. Castellanos Additional discussion with Cardiology in the morning if rate remains uncontrolled as per day team. Will obtain a two view chest x-ray in the morning. Patient has developed a little bit of throat clearing and cough but no history congested cough or abnormal finding chest exam. Altered mental status (Acute) - by report patient has been having progressive cognitive decline. She does have a history underlying dementia. Her U tox is positive for barbiturates. Will try to minimize potentially sedating and medications overnight. Patient will receive IV fluid hydration as noted below. Patient's MCV has increased significantly. She also notes that her appetite has progressively been declining. Will check B12 and folate levels as patient may require some supplementation.. Generalized weakness/fall - PT OT evaluation. Patient reports she slid off the blankets in her bed. She denies that she had her head although staff had reported to ED provider that she had. CT head was negative for any evidence of acute findings. She is nonfocal exam. Renal insufficiency - previously available baseline creatinine 0.8 in 2017. Currently 1.0. Will provide patient with some gentle IV hydration and repeat a BMP in the morning. Anemia with macrocytosis - compared to available labs from 2017 appears new. Patient without any evidence of active for acute bleeding. Will defer further evaluation to PCP. Patient is on Eliquis which will continue at this time. Hyperkalemia-minimally elevated. Patient with some acute renal insufficiency and receiving IV fluids. Will repeat BMP in the morning. Chronic medical issues Dementia - continue patient's donepezil Benign essential HTN - BP is at this time are acceptable resume patient's metoprolol and diltiazem spironolactone HLD - patient is not currently on any and statin therapy Sick sinus syndrome - status post pacer on monitors Familial tremor CAD Pruritus - chronic and unchanged. Patient has outpatient follow-up scheduled with Dermatology. Offered lotions and or topical steroid therapy but patient reports this is not been helpful in the past. Will avoid any antihistamines at this time given patient's cognitive changes. FEN - cardiac diet. Patient received some IV fluids for gentle hydration overnight as noted above. Electrolyte monitoring replacement if needed. PPX-on Eliquis which will continue. Cor status-DNR DNI as per most form. Disposition-patient has been admitted to observation status on PCU for close cardiac monitoring at this time. Will monitor patient's heart rate and hopefully patient will achieve improved control tomorrow. May require additional hospital days pending day team reassessment in the morning.
[2018-04-10] MEDS ORDERED: DICLOFENAC SODIUM 1% 100 GM GEL TP PRN (00:24)
[2018-04-10] MEDS ORDERED: CHOLESTYRAMINE/SUCROSE 4 GM PKT PO PRN (00:24)
[2018-04-10 04:40] LABS: PLATELET COUNT 152 10^3/uL (150-400)
[2018-04-10 05:01] LABS: CREATINE KINASE 38 IU/L (0-156)
[2018-04-10] MEDS ORDERED: APIXABAN 2.5 MG TAB PO SCH (09:00)
[2018-04-10] MEDS ORDERED: METOPROLOL TARTRATE 25 MG TAB PO SCH (09:00)
[2018-04-10] MEDS ORDERED: SENNOSIDES/DOCUSATE SODIUM TAB PO SCH (09:00)
[2018-04-10] MEDS ORDERED: PANTOPRAZOLE SODIUM 40 MG TAB PO SCH (09:00)
[2018-04-10] MEDS ORDERED: SPIRONOLACTONE 25 MG TAB PO SCH (09:00)
[2018-04-10] MEDS ORDERED: CETIRIZINE 10 MG TAB PO SCH (09:00)
[2018-04-10] MEDS ORDERED: predniSONE 10 MG TAB PO SCH (09:00)
[2018-04-10] MEDS ORDERED: DILTIAZEM CD 120 MG CAP PO SCH (09:00)
[2018-04-10] MEDS ORDERED: METOPROLOL TARTRATE 100 MG TAB PO SCH (09:30)
[2018-04-10] MEDS: LACTASE 3,000 UNIT TAB PO SCH ×2 (11:35→16:11)
[2018-04-10] MEDS: NON-FORMULARY NEW DRUG (Propylene Glycol [Systane Balance] 1 DROP) EACHEYE SCH ×2 (11:36→16:16)
[2018-04-10] MEDS: PRIMIDONE 250 MG TAB PO SCH ×2 (11:41)
--- NOTE | 2018-04-10 15:24 | ASMTCMCOM ---
CM Note CM Note Notes: Pts case discussed in morning rounds. Pt is being discharged back to [facility]. CM spoke w/ both of pts nieces regarding d/c POC. Therapies are recommending HC at this time. Pt is already getting PT/OT at [facility]. [facility] is arranging transportation for 4PM-430PM. DC orders sent to [facility]. CM available for changes. Plan: [facility] Date Signed: 04/10/2018 03:23 PM Electronically Signed By:HEIDY Orellana
--- NOTE | 2018-04-10 15:29 | PDIAF ---
- Diagnosis Diagnosis: Fall, Aflutter with RVR Code Status: Do Not Resuscitate - Medication Management Discharge Medications: Medications to Continue on Transfer Acetaminophen [Tylenol ES 500 mg (*)] 1,000 mg PO TID 08/20/17 [Last Taken 08/19] Diltiazem HCl [Cartia Xt] 120 mg PO DAILY 08/20/17 [Last Taken 08/19/17] Donepezil HCl [Aricept 5 MG (*)] 10 mg PO DAILY18 08/20/17 [Last Taken 08/19/17] Furosemide [Lasix 20 MG (*)] 20 mg PO BID 08/20/17 [Last Taken 08/19/17 21:00] Lactase [Lactase 3000 Unit (*)] 9,000 unit PO TID 08/20/17 [Last Taken Unknown] Magnesium Hydroxide [Milk of Magnesia] 30 ml PO DAILY PRN 08/20/17 [Last Taken Unknown] Omeprazole [Prilosec 20 mg] 20 mg PO Q2D 08/20/17 [Last Taken 08/19/17] Potassium Cl [Klor-Con 20 meq (*)] 20 meq PO DAILY 08/20/17 [Last Taken 08/19/17 ] Trolamine Salicylate [Aspercreme] 1 amy TP DAILY PRN 08/20/17 [Last Taken Unknown] Bisacodyl [Magic Bullet 10 mg] 10 mg [place] DAILY PRN 04/09/18 [Last Taken Unknown] Cetirizine [ZyrTEC 10 mg (*)] 10 mg PO DAILY 04/09/18 [Last Taken Unknown] Cholecalciferol Vit D3 [Vitamin D3 (*)] 50,000 unit PO Q30D 04/09/18 [Last Taken Unknown] Cholestyramine/Sucrose [Questran] 4 gm PO DAILY PRN 04/09/18 [Last Taken Unknown ] Diclofenac Sodium 1% [Voltaren Gel (*)] 1 amy TP QID PRN 04/09/18 [Last Taken Unknown] Fluocinonide 0.05% [Lidex 0.05% Cream] 1 amy TP BID PRN 04/09/18 [Last Taken Unknown] Fluticasone Nasal [Flonase Nasal [place]ight] 1 sprays NASAL DAILY PRN 04/09/18 [Last Taken Unknown] Memantine HCl [Namenda 5 mg (*)] 5 mg PO HS 04/09/18 [Last Taken Unknown] Polyethylene Glycol 3350 [Miralax 17 gm (*)] 17 gm PO DAILY PRN 04/09/18 [Last Taken Unknown] Primidone [Primidone 250mg (*)] 375 mg PO BID 04/09/18 [Last Taken Unknown] Propylene Glycol [Systane Balance] 1 drop EACHEYE TID 04/09/18 [Last Taken Unknown] Sennosides/Docusate Sodium [Senna-S Tablet] 1 each PO BID 04/09/18 [Last Taken Unknown] Spironolactone [Aldactone 25 MG (*)] 25 mg PO DAILY 04/09/18 [Last Taken Unknown ] hydrOXYzine HCL [hydrOXYzine HCL (RX)] 25 mg PO Q6 PRN 04/09/18 [Last Taken Unknown] predniSONE [Prednisone] 10 mg PO DAILY 04/09/18 [Last Taken Unknown] Aspirin EC [Aspirin EC 81 mg (*)] 81 mg PO DAILY #30 tab 04/10/18 [Last Taken Unknown] Metoprolol Tartrate [Lopressor 100 mg (*)] 100 mg PO BID #60 tab 04/10/18 [Last Taken Unknown] Biochemist Antibiotics: NA Discharge Medications: Refer to the Discharge Home Medication list for PRN reason. PICC Care - Routine: N/A - Orders Services needed: Home Care, Registered Nurse, Physical Therapy, Occupational Therapy Home Care Face to Face: I certify that this patient was under my care and that I had the required [id number] encounter meeting the encounter requirements on the discharge day. My findings support the fact that the patient is homebound as defined in Home Care Face to Face Continued: [facility] Chapter 7 Medicare Benefits Manual 30.1.1 , The condition of the patient is such that there exists a normal inability to leave home and consequently, leaving home would require a considerable and taxing effort. Isolation Type: None Oxygen: NA Diet Recommendation: no restrictions on diet Weigh Patient: weekly Liu: Not applicable Activity/Weight Bearing Restrictions: as tolerated - Labs/Radiology BMP Date: 04/14/18 CBC w/diff Date: 04/14/18 Call or Fax Lab and Imaging Results to: Drs. Scott and Emanuel - Follow Up Care Current Providers and Referrals: Eduardo Castellanos MD [Medical Doctor] - 3-5 days Bronwyn Scott MD [Primary Care Provider] - follow up in 1 week
[2018-04-10 16:00] VITALS: BP 109/76
--- NOTE | 2018-04-10 16:00 | PDDCSUM ---
Discharge Summary Discharge Summary: DISCHARGE SUMMARY FOLLOW-UP ITEMS: 1. Possible outpatient evaluation for Watchman device 2. Reassess heart rate management at [facility] DATE OF ADMISSION: 04/09/2018 DATE OF DISCHARGE: 04/10/2018 DISCHARGE DIAGNOSES: 1. Atrial flutter with rapid ventricular response 2. Acute mechanical fall 3. Chronic encephalopathy secondary to dementia 4. Chronic rash CONSULTATIONS: None PROCEDURES / IMAGIN. Head CT demonstrating no intracranial hemorrhage 2. Small bilateral pleural effusions 3. Macrocytic anemia CHIEF COMPLAINT: Acute fall SUBJECTIVE: Patient is feeling well at time discharge PHYSICAL EXAM ON DISCHARGE: Systolic blood pressure is 100-130, heart rate 70-80, alert awake oriented x3, no apparent distress, concentration 05/31, heart rhythm is irregularly irregular but not rapid, lungs are clear to auscultation bilaterally, no lower extremity edema, patient has some dry skin right-sided inferior auricular area as well as some dry skin on her right upper extremity without any surrounding erythema or ulceration LABS ON DISCHARGE: Creatinine 0.9, the potassium 4.2, hemoglobin 10.9, MCV 109, B12 and folate normal, TSH 0.9, troponin negative, urinalysis unremarkable HOSPITAL COURSE BY PROBLEM: Patient presented after an acute mechanical fall, patient reportedly slid off her bed, did not result in any overt trauma. Patient was brought to [facility] for further evaluation, it was noted to be in atrial flutter with rapid ventricular response and heart rate between 100 and 130. She was not hypotensive, and she received numerous doses of IV metoprolol in the emergency department with marginal effect. She was placed under observation and her home dosage of metoprolol tartrate 75 twice daily was up titrated to 100 mg twice daily, with good effect, in addition to continuing her home dosage of diltiazem 120 mg daily. She remained in atrial flutter but was rate controlled and she should be followed up at [facility] for ongoing rate management. Given that she fell prior to presentation and she is at risk for ongoing falls, we have decided to at least temporarily discontinue her systemic anticoagulation and placed on aspirin 81 for CVA prevention. I have contacted [facility] for consideration of watchman device. Although the patient has baseline chronic encephalopathy secondary to dementia, she is participatory in exam, she is fully oriented and able to concentrate, and she is safe for discharge back [facility] after physical and occupational therapy assessments. She will have nursing home director, PT, OT. Regarding the patient's diffuse pruritus and which she perceives as a rash, her physical exam is fairly unremarkable, with only some dry skin over the dorsal aspect of the right upper extremity as well as the inferior periauricular area, and the patient has established with an outpatient aircraft dispatcher who will has scheduled see the patient in the near term. I recommend the patient continue her home medications as prescribed, and we will not make any changes them at this time. DISCHARGE MEDICATIONS: Please see official discharge medication reconciliation sheet in chart , continue home medications with discontinuation of Eliquis, initiation of aspirin 81 mg daily, up titration of metoprolol tartrate 100 mg twice daily, continuation of diltiazem 120 mg daily. DISCHARGE INSTRUCTIONS: Please schedule follow-up with Dr. Sravan Castellanos at [facility] next week, please follow up PCP thereafter. Please follow up with aircraft dispatcher as scheduled.
[2018-04-10] MEDS ORDERED: DONEPEZIL HCL 5 MG TAB PO SCH (18:00)
[2018-04-10] MEDS ORDERED: MEMANTINE HCL 5 MG TAB PO SCH (21:00)
--- NOTE | 2018-04-11 09:24 | ASDISCHSUM ---
Discharge Information Plan Status:Assisted Living Medically Cleared to Leave:04/10/2018 Discharge Date:04/10/2018 04:44 PM CM D/C Disposition: ADT D/C Disposition:Home Health Service Projected Discharge Date:04/10/2018 11:00 AM Transportation at D/C: Discharge Delay Reason: Follow-Up Date:04/10/2018 11:00 AM Discharge Slot: Final Diagnosis: Placement Information Referral Type:Assisted Living Residence Referral ID:[id number] Provider Name:[facility] Address 1:[address] Address 2: City:[place] Selection Factors: State:[place] Patient Contact Information Contact Name:HUE Relationship:Other Address:[address] Work Phone: City:[place] Alternate Phone: State/Zip Code:[place] [address] Email: Financial Information Financial Class:Medicare Primary Plan Desc:MEDICARE OUTPATIENT Primary Plan Number:[id number] Secondary Plan Desc: OUT OF STATE [facility] Secondary Plan Number:[id number] Assessment Information [facility] Progress Note CM Note CM Note Notes: Pts case discussed in morning rounds. Pt is being discharged back to [facility]. spoke w/ both of pts nieces regarding d/c POC. Therapies are recommending HC at this time. Pt is already getting PT/OT at [facility]. [facility] is arranging transportation for 4PM-430PM. DC orders sent to [facility]. available for changes. Plan: [facility] Date Signed: 04/10/2018 03:23 PM Electronically Signed By:HEIDY Orellana Intervention Information Intervention Type:*RUIZ-Signed Date of Service:04/10/2018 09:46 AM Patient Type:Observation Staff Member:Mandi Carlton Hours: Discipline: Severity: Comment:
[2018-04-12] MEDS ORDERED: PANTOPRAZOLE SODIUM 40 MG TAB PO SCH (09:00)
== END 2018-04-10 16:44 ==
LOC: EDUNIT# → INTOOBSV 20:35 → F2W 21:34
PROVIDERS: ADMIT Internal Medicine; ATTEND Internal Medicine
DX: I48.92 Unspecified atrial flutter (principal); G93.40 Encephalopathy, unspecified; F03.90 Unspecified dementia, unspecified severity, without behavioral disturbance, psychotic disturbance, mood disturbance, and anxiety; E86.9 Volume depletion, unspecified; R21 Rash and other nonspecific skin eruption; D64.9 Anemia, unspecified; R53.1 Weakness; W06.XXXA Fall from bed, initial encounter; Y92.122 Bedroom in nursing home as the place of occurrence of the external cause; Y99.8 Other external cause status; I10 Essential (primary) hypertension; I48.91 Unspecified atrial fibrillation; I49.5 Sick sinus syndrome; I25.10 Atherosclerotic heart disease of native coronary artery without angina pectoris; I27.20 Pulmonary hypertension, unspecified; G25.0 Essential tremor; E78.5 Hyperlipidemia, unspecified; F41.9 Anxiety disorder, unspecified; I73.9 Peripheral vascular disease, unspecified; I05.1 Rheumatic mitral insufficiency; Z79.01 Long term (current) use of anticoagulants; Z87.440 Personal history of urinary (tract) infections; Z95.0 Presence of cardiac pacemaker; Z95.3 Presence of xenogenic heart valve; Z99.3 Dependence on wheelchair; Z66 Do not resuscitate
CPT/HCPCS: 70450; 71046; 93005; 96374; 97161; 97165; 97535; 99285; G0378; G8978; G8979; G8987; G8988; J7512; 80305; 82607-90; G0480